=== PATIENT | male | born 1980 | race Caucasian/White ===

== ENCOUNTER → 2018-06-12 | Outpatient (CLI) | payer MEDICARE ==
--- NOTE | 2018-06-12 12:09 | XR ---
EXAMINATION TYPE: XR ankle complete LT DATE OF EXAM: 06/12/2018 COMPARISON: NONE HISTORY: Soft tissue nodule FINDINGS: Three views of the ankle demonstrate the ankle mortise to be intact and symmetric. The joint spaces are preserved. The osseous structures are intact. Bony density along the dorsal surface of the talu s. Appears well corticated and chronic. IMPRESSION: 1. No osseous abnormality. If there is concern for soft tissue nodule correlate with MRI or ultrasoun d.
--- NOTE | 2018-06-12 12:16 | XR ---
EXAMINATION TYPE: XR foot complete LT DATE OF EXAM: 06/12/2018 COMPARISON: NONE HISTORY: Soft tissue nodule TECHNIQUE: Three views are submitted. FINDINGS: The osseous structures are intact. There is no acute fracture or dislocation. Joint spaces are p reserved. Mild arthropathy of the first MTP. IMPRESSION: 1. No acute fracture or dislocation. If symptoms persist, follow-up exam in 7 to 10 days could be ob tained.
== END ==
LOC: RADXRMAIN 11:40
PROVIDERS: ATTEND Podiatrist Foot Surgery
DX: M79.672 Pain in left foot (principal); M67.472 Ganglion, left ankle and foot; M77.42 Metatarsalgia, left foot

== ENCOUNTER → 2018-06-25 | Outpatient (CLI) | payer MEDICARE, OTHER ==
--- NOTE | 2018-06-25 13:35 | US ---
EXAMINATION TYPE: US extremity nonvasc complete LT DATE OF EXAM: 06/25/2018 COMPARISON: Correlation radiograph 06/12/2018 CLINICAL HISTORY: 38-year-old male M67.472/[id number]. Possible ganglion cyst. TECHNIQUE: Targeted ultrasound examination dorsal left ankle for possible ganglion cyst. FINDINGS: There is soft tissue swelling overlying the dorsum of the ankle. There is some focal bony prominence to the dorsal aspect of the talar head with a small 4 mm fragment of bone just adjacent, also apparen t radiographically. The dorsalis pedis artery courses directly above this region. There is heterogeneity of the subcutaneous tissues with some insinuating edema just medially. No disc rete ganglion cyst is seen. IMPRESSION: 1. Some bony protuberance from the dorsal aspect of the talar head. A small 4 mm fragment of bone her e could represent sequela of prior capsular injury and is apparent radiographically as well. 2. Overlying soft tissue swelling and some poorly defined fluid insinuating within the subcutaneous t issues, possible developing adventitial bursa. No well-formed bursa or discrete ganglion cyst. 3. The DP artery also courses along this region.
== END | disposition home or self-care (01) ==
LOC: RADUSWWP 10:16
PROVIDERS: ATTEND Podiatrist Foot Surgery
DX: M79.89 Other specified soft tissue disorders (principal); M79.672 Pain in left foot

== ENCOUNTER 2019-03-27 08:19 | Day surgery (SDC) | payer MEDICARE, OTHER ==
[2019-03-25 16:44] VITALS: BMI 36.3
[~2019-03-27 08:19] MED LIST: LACTATED RINGERS 1,000 ML IV SCH
[2019-03-27] MEDS ORDERED: LIDOCAINE 1% 20 ML VIAL (10MG/ML) FOR IV START INTRADERMA ONE (08:50)
[2019-03-27 08:56] LABS: Glucose,Whole Blood 86 mg/dL (75-99)
[2019-03-27 09:06] VITALS: TEMP 98.2
[2019-03-27] MEDS ORDERED: LIDOCAINE 1% INJ 10MG/ML (20 ML MDV) ONE (09:09)
[2019-03-27] MEDS ORDERED: PROPOFOL 10 MG/ML 20 ML VIAL IV ONE (09:09)
[2019-03-27 10:04] VITALS: RESP 18
--- NOTE | 2019-03-27 10:08 | P.PCN ---
Date of Procedure: 03/27/19 Description of Procedure: Brief history: 39-year-old male presenting for outpatient EGD and colonoscopy for evaluation of altered bowel function, esophageal dysphagia. The patient reports episodes of loose bowel movements with associated incontinence and urgency. Occasionally waking up to have bowel movements. Laboratory evaluation and stool studies were negative except for a mildly depressed TSH with normal T4. He denies any current laxative therapy. Continues to have loose watery bowel movements. He also reports intermittent pill and solid food dysphagia. Procedure performed: Esophagogastroduodenoscopy with biopsy Colonoscopy with biopsy and polypectomy Estimated blood loss: Minimal. Preoperative diagnosis: Esophageal dysphagia, altered bowel function, no prior endoscopic evaluation Anesthesia: MAC Procedure: After informed consent was obtained from the patient was brought into the endoscopy unit and IV sedation was administered by anesthesia under continuous monitoring. Initially upper endoscopy was done. The Olympus GF 190 video endoscope was inserted into the mouth and esophagus intubated without any difficulty and was gradually advanced into the stomach and duodenum and carefully examined. The bulb and second part of the duodenum appeared normal, with biopsies taken to rule out celiac sprue. The scope was then withdrawn into the stomach adequately insufflated with air and upon careful examination the antrum and body, cardia and fundus appeared normal, except for some mild erythema in the antrum and body suggestive of mild gastritis with biopsies taken. The scope was then withdrawn into the esophagus. The GE junction was located at 40 cm to the incisors. It appeared regular with no erythema erosions or ulcerations. Rest of the esophagus appeared normal, with metastatic esophageal biopsies taken to rule out eosinophilic esophagitis. Patient tolerated the procedure well. At this time the patient continued to remain sedation. Initial digital rectal examination was normal. Olympus CF 190 video colonoscope was then inserted into the rectum and gradually advanced to the cecum without any difficulty. The terminal ileum was intubated and appeared normal with biopsies taken due to altered bowel function. Careful examination was performed as the scope was gradually being withdrawn. The prep was excellent. The cecum, ascending colon, transverse colon, descending colon, sigmoid colon and rectum appeared normal, with biopsies of the right and left colon taken due to altered bowel function. 2 diminutive polyps one from the ascending colon and one in the transverse colon removed measuring 2 mm removed with cold forcep polypectomy . Retroflexion was performed in the rectum and no lesions were noted. Patient tolerated the procedure well. Impression: 1. Mild gastritis antrum and body, biopsied. Biopsies of the duodenum and midesophagus. 2. 2 diminutive polyps removed from the ascending colon and transverse colon with cold forceps. Normal-appearing colon from rectum to cecum with normal appearing terminal ileum, random biopsies taken of the right colon, left colon and terminal ileum given ulcer. Recommendations: Findings of this examination were discussed with the patient as well as His parents. Okay to resume diet. Okay to resume medications. Follow-up in gastroenterology clinic as previously scheduled. Anticipate repeat colonoscopy in 5 years for personal history of colon polyps.
[2019-03-27 10:24] VITALS: BP 104/63; PULSE 73
== END 2019-03-27 10:45 | disposition home or self-care (01) ==
LOC: ORWHC2ENDO 08:19
PROVIDERS: ATTEND Internal Medicine
DX: K29.50 Unspecified chronic gastritis without bleeding (principal); K21.0 Gastro-esophageal reflux disease with esophagitis; K63.5 Polyp of colon; I10 Essential (primary) hypertension; Z79.899 Other long term (current) drug therapy; Z88.8 Allergy status to other drugs, medicaments and biological substances
CPT/HCPCS: 88305; 45380; 43239; J2001; J2704

== ENCOUNTER → 2019-06-09 | Outpatient (CLI) | payer MEDICARE, OTHER ==
--- NOTE | 2019-06-09 21:45 | XR ---
EXAMINATION TYPE: XR abdomen 2V DATE OF EXAM: 06/09/2019 COMPARISON: NONE HISTORY: Abdominal pain TECHNIQUE: One view abdominal series FINDINGS: The osseous structures are intact. The bowel gas pattern is nonspecific. Lung bases are clear. Scler osis adjacent to the left SI joint can be associated with sacroiliitis. No suspicious calcifications. IMPRESSION: 1. Nonspecific abdomen.
== END | disposition home or self-care (01) ==
LOC: RAD 16:22
PROVIDERS: ATTEND Internal Medicine
DX: R19.4 Change in bowel habit (principal)
CPT/HCPCS: 74019

== ENCOUNTER → 2020-06-21 | Outpatient (CLI) | payer MEDICARE, OTHER ==
--- NOTE | 2020-06-21 15:33 | CT ---
EXAMINATION TYPE: CT hand RT wo con DATE OF EXAM: 06/21/2020 COMPARISON: None. HISTORY: Right 4th and 5th digit pain x1 month. Fifth metacarpal fracture, evaluate healing per order . CT DLP: 169.7 mGycm Automated exposure control for dose reduction was used. FINDINGS: There is a displaced subacute fracture at base or proximal metaphysis of fifth metacarpal. Some callu s formation is seen. Some additional tiny bony fragments along the ulnar aspect are felt present. The re is roughly 4-5 mm radial displacement of distal fracture fragment on coronal image 36.There is rou ghly 7 mm impaction of distal fracture fragment. There is abnormal measured 30 degrees dorsal angulat ion of distal fracture fragment on sagittal images. There is also abnormal 27 degrees radial angulati on of distal fracture fragment coronal images. Remainder of study is unremarkable. Joint spaces are maintained. No additional fracture is observed. IMPRESSION: As above.
== END ==
LOC: RADCTMAIN 14:51
PROVIDERS: ATTEND Orthopaedic Surgery Hand Surgery
DX: S62.316D Displaced fracture of base of fifth metacarpal bone, right hand, subsequent encounter for fracture with routine healing (principal)

== ENCOUNTER 2021-01-08 00:05 | Emergency (ER) | payer MEDICARE, OTHER ==
[2021-01-08] MEDS ORDERED: SODIUM CHLORIDE 0.9% 1,000 ML IV STA (00:19)
[2021-01-08] MEDS ORDERED: ACETAMINOPHEN TAB 325 MG TAB PO STA (00:19)
[2021-01-08 01:20] LABS: Basophils # (A) 0.1 k/uL (0-0.2); Basophils % (A) 1 %; Eosinophils # (A) 1.7 k/uL (0-0.7); Eosinophils % (A) 14 %; HCT 44.7 % (39.0-53.0); HGB 14.5 gm/dL (13.0-17.5); Lymphocytes # (A) 2.1 k/uL (1.0-4.8); Lymphocytes % (A) 18 %; MCH 27.9 pg (25.0-35.0); MCHC 32.5 g/dL (31.0-37.0); Mean Platelet Volume 7.7; Monocytes # (A) 0.5 k/uL (0-1.0); Monocytes % (A) 4 %; Neutrophils # (A) 7.5 k/uL (1.3-7.7); Neutrophils % (A) 62 %; Platelet Count 310 k/uL (150-450); RDW 13.6 % (11.5-15.5); WBC 12.1 k/uL (3.8-10.6)
[2021-01-08 01:29] LABS: Appearance,Urine Clear (Clear); Bilirubin,Urine Negative (Negative); Blood,Urine Negative (Negative); Color,Urine Yellow; Glucose,Urine (UA) Negative (Negative); Ketones,Urine Negative (Negative); Leukocyte Esterase,Urine Negative (Negative); Nitrite,Urine Negative (Negative); Protein,Urine Trace (Negative); Specific Gravity,Urine 1.022 (1.001-1.035); Urobilinogen,Urine <2.0 mg/dL (<2.0)
[2021-01-08 01:57] LABS: Albumin 4.1 g/dL (3.5-5.0); Calcium 8.6 mg/dL (8.4-10.2); Total Bilirubin 0.5 mg/dL (0.2-1.3); Total Protein 6.8 g/dL (6.3-8.2)
[2021-01-08] MEDS ORDERED: ONDANSETRON ODT 4 MG TAB PO STA (01:59)
--- NOTE | 2021-01-08 01:59 | ED ---
General Adult HPI - General Chief complaint: Headache Stated complaint: Headache Time Seen by Provider: 01/08/21 00:15 Source: patient, RN notes reviewed Mode of arrival: wheelchair - History of Present Illness Initial comments: Patient is a 40-year-old male presents to emergency department complaining of weakness headache for the past day started around [address] [address] similarly the past and was diagnosed with dehydration and IV fluids helped alleviate symptoms. Patient noted that he took his nighttime medications prior to arrival. He was otherwise a well-appearing 40-year-old male in no apparent distress or pain. He denied any chest pain shortness of breath headache nausea vomiting diarrhea constipation fever fatigue chills. - Related Data Home Medications Medication Instructions Recorded Confirmed ARIPiprazole IM SYRINGE [Abilify 400 mg IM Q56D 03/25/19 03/25/19 Maintena Syringe] Amlodipine(Dose Unknown) 10 mg PO QAM 03/25/19 03/27/19 Ativan(Dose Unknown) 1 mg PO BID 03/25/19 03/27/19 Clonidine(Dose Unknown) 0.1 mg PO DAILY PRN 03/25/19 03/27/19 Lisinpril(Dose Unkown) 40 mg PO DAILY 03/25/19 03/27/19 Metoprolol(Dose Unknown) 25 mg PO BID 03/25/19 03/27/19 Omeprazole(Dose Unknown) 20 mg PO QAM 03/25/19 03/27/19 Pepcid(Dose Unknown) 1 tab PO HS 03/25/19 03/25/19 Vistaril(Dose Unknown) 25 mg PO HS 03/25/19 03/27/19 Atorvastatin [Lipitor] 10 mg PO HS 03/27/19 03/27/19 Cholecalciferol (Vitamin D3) 5,000 unit PO 03/27/19 [Vitamin D3] Clobetasol Propionate [Temovate 1 applic TOPICAL HS 03/27/19 03/27/19 0.05% Oint] Divalproex [Depakote] 750 mg PO HS 03/27/19 03/27/19 Fluocinonide 0.05% [Lidex 0.05% TOPICAL BID 03/27/19 cream] lisinopriL 20 mg PO HS 03/27/19 03/27/19 Allergies Allergy/AdvReac Type Severity Reaction Status Date / Time escitalopram [From Lexapro] Allergy erection Verified 01/08/21 00:10 that lasted over 24 hfs Review of Systems ROS Statement: Those systems with pertinent positive or pertinent negative responses have been documented in the HPI. ROS Other: All systems not noted in ROS Statement are negative. Past Medical History Past Medical History: GERD/Reflux, Hypertension, Osteoarthritis (OA), Skin Disorder Additional Past Medical History / Comment(s): blood in stool, psoriasis, dermatitis, "prediabetic"-diet control, anemia, sore left ankle-limps, deh ydration History of Any Multi-Drug Resistant Organisms: MRSA Date of last positivie culture/infection: 11/20/2012 MDRO Source:: back Additional Past Surgical History / Comment(s): Dr Shah did a surgery but not sure what, Past Anesthesia/Blood Transfusion Reactions: Motion Sickness Past Psychological History: Anxiety, Depression Smoking Status: Never smoker Past Alcohol Use History: Rare Past Drug Use History: None Reported - Past Family History Brother(s) Family Medical History: Cancer General Exam General appearance: alert, in no apparent distress, obese Head exam: Present: atraumatic, normocephalic, normal inspection Eye exam: Present: normal appearance, PERRL, EOMI. Absent: scleral icterus, conjunctival injection, periorbital swelling Neck exam: Present: normal inspection Respiratory exam: Present: normal lung sounds bilaterally. Absent: respiratory distress, wheezes, rales, rhonchi, stridor Cardiovascular Exam: Present: regular rate, normal rhythm, normal heart sounds. Absent: systolic murmur, diastolic murmur, rubs, gallop, clicks GI/Abdominal exam: Present: soft, normal bowel sounds. Absent: distended, tenderness, guarding, rebound, rigid Extremities exam: Present: normal inspection, full ROM, normal capillary refill. Absent: tenderness, pedal edema, joint swelling, calf tenderness Neurological exam: Present: alert, oriented X3 Psychiatric exam: Present: normal affect, normal mood Skin exam: Present: warm, dry, intact, normal color. Absent: rash Course Vital Signs 01/08/21 00:06 Temperature 99.8 F H Pulse Rate 85 Respiratory 19 Rate Blood Pressure 151/91 O2 Sat by Pulse 97 Oximetry Medical Decision Making - Medical Decision Making 40-year-old male complaining of headache and only drinking 3-4 glasses of water per day. Basic labs, 1 L normal saline ordered. Labs unremarkable. Patient states since then better after fluids. 4 mg Zofran given for nausea. Patient is agreeable to discharge home as he is feeling better while laying in bed. Case discussed with Dr. Hernandez, patient discharge home. - Lab Data Result diagrams: 01/08/21 01:03 01/08/21 01:03 Lab Results 01/08/21 01/08/21 01/08/21 Range/Units 01:03 01:03 01:03 WBC 12.1 H (3.8-10.6) k/uL RBC 5.20 (4.30-5.90) m/uL Hgb 14.5 (13.0-17.5) gm/dL Hct 44.7 (39.0-53.0) % MCV 86.0 (80.0-100.0) fL MCH 27.9 (25.0-35.0) pg MCHC 32.5 (31.0-37.0) g/dL RDW 13.6 (11.5-15.5) % Plt Count 310 (150-450) k/uL MPV 7.7 Neutrophils % 62 % Lymphocytes % 18 % Monocytes % 4 % Eosinophils % 14 % Basophils % 1 % Neutrophils # 7.5 (1.3-7.7) k/uL Lymphocytes # 2.1 (1.0-4.8) k/uL Monocytes # 0.5 (0-1.0) k/uL Eosinophils # 1.7 H (0-0.7) k/uL Basophils # 0.1 (0-0.2) k/uL Sodium 134 L (137-145) mmol/L Potassium 4.0 (3.5-5.1) mmol/L Chloride 103 (98-107) mmol/L Carbon Dioxide 22 (22-30) mmol/L Anion Gap 9 mmol/L BUN 25 H (9-20) mg/dL Creatinine 1.25 (0.66-1.25) mg/dL Est GFR (CKD-EPI)AfAm 85 (>60 ml/min/1.73 sqM) Est GFR (CKD-EPI)NonAf 73 (>60 ml/min/1.73 sqM) Glucose 135 H (74-99) mg/dL Calcium 8.6 (8.4-10.2) mg/dL Total Bilirubin 0.5 (0.2-1.3) mg/dL AST 29 (17-59) U/L ALT 30 (4-49) U/L Alkaline Phosphatase 99 (38-126) U/L Total Protein 6.8 (6.3-8.2) g/dL Albumin 4.1 (3.5-5.0) g/dL Urine Color Yellow Urine Appearance Clear (Clear) Urine pH 5.0 (5.0-8.0) Ur Specific [place] 1.022 (1.001-1.035) Urine Protein Trace H (Negative) Urine Glucose (UA) Negative (Negative) Urine Ketones Negative (Negative) Urine Blood Negative (Negative) Urine Nitrite Negative (Negative) Urine Bilirubin Negative (Negative) Urine Urobilinogen <2.0 (<2.0) mg/dL Ur Leukocyte Esterase Negative (Negative) Disposition Clinical Impression: Dehydration, Nausea, Headache Disposition: HOME SELF-CARE Condition: Stable Instructions (If sedation given, give patient instructions): Acute Headache (ED) Additional Instructions: Please return to the Emergency Department if symptoms worsen or any other concerns. Increase oral fluids to approximately gallon water per day. Follow up primary care 1-2 days. Take medications as prescribed Is patient prescribed a controlled substance at d/c from ED?: No Referrals: None,Stated [Primary Care Provider] - 1-2 days Time of Disposition: 02:31
[2021-01-08 02:40] VITALS: BP 122/81; PULSE 82; RESP 20; TEMP 98.3
== END 2021-01-08 02:56 | disposition home or self-care (01) ==
LOC: EC 00:05
DX: E86.0 Dehydration (principal); R11.0 Nausea; R51.9 Headache, unspecified; R53.1 Weakness; I10 Essential (primary) hypertension; K21.9 Gastro-esophageal reflux disease without esophagitis; M19.90 Unspecified osteoarthritis, unspecified site; Z88.8 Allergy status to other drugs, medicaments and biological substances; Z79.899 Other long term (current) drug therapy
CPT/HCPCS: 36415; 80053; 81003; 85025; 96360; 99285

== ENCOUNTER 2021-04-28 21:55 | Emergency (ER) | payer MEDICARE, OTHER ==
[2021-04-28] MEDS ORDERED: ACETAMINOPHEN TAB 500 MG TAB PO STA (23:33)
[2021-04-28] MEDS ORDERED: ONDANSETRON 4 MG/2 ML VIAL IVP STA (23:34)
[2021-04-28] MEDS ORDERED: KETOROLAC 15 MG/ML 1 ML VIAL IVP STA (23:36)
[2021-04-28] MEDS ORDERED: DEXAMETHASONE SOD PHOSPHATE 10 MG/ML 1 ML VIAL IVP STA (23:36)
--- NOTE | 2021-04-28 23:36 | ED ---
Fever HPI - General Chief Complaint: Fever Stated Complaint: Cough,Abd pain Time Seen by Provider: 04/28/21 23:15 Source: patient, RN notes reviewed, old records reviewed Mode of arrival: ambulatory Limitations: physical limitation - History of Present Illness Initial Comments: This is a 41-year-old male to the emergency department for evaluation of fever nausea vomiting diarrhea cough congestion. No travel history no sick contacts. No other significantly new complaints. Patient states otherwise not really feeling well. Increasing weakness and abdominal pain. Symptoms have been 2 days getting worse MD Complaint: fever, malaise, weakness, other (NVD) -: days(s) Temperature Source: subjective Context: multiple patients with similar symptoms Associated Symptoms: chills, rigors, myalgias, cough, nausea, vomiting, diarrhea Treatments Prior to Arrival: none - Related Data Home Medications Medication Instructions Recorded Confirmed ARIPiprazole IM SYRINGE [Abilify 400 mg IM Q56D 03/25/19 03/25/19 Maintena Syringe] Amlodipine(Dose Unknown) 10 mg PO QAM 03/25/19 03/27/19 Ativan(Dose Unknown) 1 mg PO BID 03/25/19 03/27/19 Clonidine(Dose Unknown) 0.1 mg PO DAILY PRN 03/25/19 03/27/19 Lisinpril(Dose Unkown) 40 mg PO DAILY 03/25/19 03/27/19 Metoprolol(Dose Unknown) 25 mg PO BID 03/25/19 03/27/19 Omeprazole(Dose Unknown) 20 mg PO QAM 03/25/19 03/27/19 Pepcid(Dose Unknown) 1 tab PO HS 03/25/19 03/25/19 Vistaril(Dose Unknown) 25 mg PO HS 03/25/19 03/27/19 Atorvastatin [Lipitor] 10 mg PO HS 03/27/19 03/27/19 Cholecalciferol (Vitamin D3) 5,000 unit PO 03/27/19 [Vitamin D3] Clobetasol Propionate [Temovate 1 applic TOPICAL HS 03/27/19 03/27/19 0.05% Oint] Divalproex [Depakote] 750 mg PO HS 03/27/19 03/27/19 Fluocinonide 0.05% [Lidex 0.05% TOPICAL BID 03/27/19 cream] lisinopriL 20 mg PO HS 03/27/19 03/27/19 Allergies Allergy/AdvReac Type Severity Reaction Status Date / Time escitalopram [From Lexapro] Allergy erection Verified 04/28/21 23:10 that lasted over 24 hfs Review of Systems ROS Statement: Those systems with pertinent positive or pertinent negative responses have been documented in the HPI. ROS Other: All systems not noted in ROS Statement are negative. Past Medical History Past Medical History: GERD/Reflux, Hypertension, Osteoarthritis (OA), Skin Disorder Additional Past Medical History / Comment(s): blood in stool, psoriasis, dermatitis, "prediabetic"-diet control, anemia, sore left ankle-limps, de hydration History of Any Multi-Drug Resistant Organisms: MRSA Date of last positivie culture/infection: 11/20/2012 MDRO Source:: back Additional Past Surgical History / Comment(s): Dr Shah did a surgery but not sure what, Past Anesthesia/Blood Transfusion Reactions: Motion Sickness Past Psychological History: Anxiety, Depression Smoking Status: Never smoker Past Alcohol Use History: Rare Past Drug Use History: None Reported - Past Family History Brother(s) Family Medical History: Cancer General Exam Limitations: physical limitation General appearance: alert, in no apparent distress Head exam: Present: atraumatic, normocephalic, normal inspection Eye exam: Present: normal appearance, PERRL, EOMI. Absent: scleral icterus, conjunctival injection, periorbital swelling ENT exam: Present: normal exam, mucous membranes moist Neck exam: Present: normal inspection. Absent: tenderness, meningismus, lymphadenopathy Respiratory exam: Present: normal lung sounds bilaterally. Absent: respiratory distress, wheezes, rales, rhonchi, stridor Cardiovascular Exam: Present: regular rate, normal rhythm, normal heart sounds. Absent: systolic murmur, diastolic murmur, rubs, gallop, clicks GI/Abdominal exam: Present: soft, normal bowel sounds. Absent: distended, tenderness, guarding, rebound, rigid Extremities exam: Present: normal inspection, full ROM, normal capillary refill. Absent: tenderness, pedal edema, joint swelling, calf tenderness Back exam: Present: normal inspection Neurological exam: Present: alert, oriented X3, CN II-XII intact Psychiatric exam: Present: normal affect, normal mood Skin exam: Present: warm, dry, intact, normal color. Absent: rash Course Vital Signs 04/28/21 23:00 Temperature 100.6 F H Pulse Rate 104 H Respiratory 18 Rate Blood Pressure 142/83 O2 Sat by Pulse 95 Oximetry - Reevaluation(s) Reevaluation #1: 04/29/21 01:24 Record is reviewed Reevaluation #2: 04/29/21 01:24 A she has requesting to have antibodies as a treatment Reevaluation #3: 04/29/21 01:24 Patient is informed results and questions answered Reevaluation #4: 04/29/21 01:24 Patient feels improved no reaction to treatment Medical Decision Making - Medical Decision Making 41 male positive for coronavirus. Symptoms improve significantly here in the ER and can be discharged home - Lab Data Result diagrams: 04/28/21 23:39 04/28/21 23:39 Lab Results 04/28/21 04/28/21 04/28/21 Range/Units 23:14 23:39 23:39 WBC 4.8 (3.8-10.6) k/uL RBC 5.54 (4.30-5.90) m/uL Hgb 15.2 (13.0-17.5) gm/dL Hct 47.7 (39.0-53.0) % MCV 86.1 (80.0-100.0) fL MCH 27.4 (25.0-35.0) pg MCHC 31.8 (31.0-37.0) g/dL RDW 13.4 (11.5-15.5) % Plt Count 214 (150-450) k/uL MPV 7.6 Neutrophils % 64 % Lymphocytes % 22 % Monocytes % 8 % Eosinophils % 4 % Basophils % 1 % Neutrophils # 3.1 (1.3-7.7) k/uL Lymphocytes # 1.0 (1.0-4.8) k/uL Monocytes # 0.4 (0-1.0) k/uL Eosinophils # 0.2 (0-0.7) k/uL Basophils # 0.0 (0-0.2) k/uL Sodium 138 (137-145) mmol/L Potassium 4.1 (3.5-5.1) mmol/L Chloride 104 (98-107) mmol/L Carbon Dioxide 24 (22-30) mmol/L Anion Gap 10 mmol/L BUN 19 (9-20) mg/dL Creatinine 1.14 (0.66-1.25) mg/dL Est GFR (CKD-EPI)AfAm >90 (>60 ml/min/1.73 sqM) Est GFR (CKD-EPI)NonAf 81 (>60 ml/min/1.73 sqM) Glucose 107 H (74-99) mg/dL Calcium 8.5 (8.4-10.2) mg/dL Magnesium 1.8 (1.6-2.3) mg/dL Total Bilirubin 0.4 (0.2-1.3) mg/dL AST 39 (17-59) U/L ALT 45 (4-49) U/L Alkaline Phosphatase 79 (38-126) U/L Lactate Dehydrogenase 448 (313-618) U/L C-Reactive Protein 0.8 (<1.0) mg/dL Total Protein 7.0 (6.3-8.2) g/dL Albumin 4.3 (3.5-5.0) g/dL Coronavirus (PCR) Detected A (Not Detectd) - EKG Data -: EKG Interpreted by Me (EKG sinus rhythm 94 IL 132 QRS 90 QTC 437) - Radiology Data Radiology results: report reviewed (Chest x-rays negative for acute disease), image reviewed Disposition Clinical Impression: Coronavirus infection, COVID-19 Disposition: HOME SELF-CARE Condition: Good Instructions (If sedation given, give patient instructions): Coronavirus Disease 2019 (COVID-19) Is patient prescribed a controlled substance at d/c from ED?: No Referrals: None,Stated [Primary Care Provider] - 1-2 days
[2021-04-29 00:22] LABS: Basophils % (A) 1 %; Eosinophils # (A) 0.2 k/uL (0-0.7); Eosinophils % (A) 4 %; HCT 47.7 % (39.0-53.0); HGB 15.2 gm/dL (13.0-17.5); Lymphocytes % (A) 22 %; MCH 27.4 pg (25.0-35.0); MCHC 31.8 g/dL (31.0-37.0); MCV 86.1 fL (80.0-100.0); Mean Platelet Volume 7.6; Monocytes # (A) 0.4 k/uL (0-1.0); Monocytes % (A) 8 %; Neutrophils # (A) 3.1 k/uL (1.3-7.7); Neutrophils % (A) 64 %; Platelet Count 214 k/uL (150-450); RBC 5.54 m/uL (4.30-5.90); RDW 13.4 % (11.5-15.5); WBC 4.8 k/uL (3.8-10.6)
--- NOTE | 2021-04-29 00:29 | XR ---
EXAMINATION TYPE: XR chest 1V portable DATE OF EXAM: 04/29/2021 COMPARISON: NONE HISTORY: Cough TECHNIQUE: FINDINGS: Heart is normal. Lungs are clear of infiltrate. There is no heart failure. Costophrenic ang les are clear. Bony thorax is intact IMPRESSION: Normal chest.
[2021-04-29 00:38] LABS: ALT 45 U/L (4-49); AST 39 U/L (17-59); African American GFR (CKD) >90 (>60 ml/min/1.73 sqM); Albumin 4.3 g/dL (3.5-5.0); Alkaline Phosphatase 79 U/L (38-126); Anion Gap 10 mmol/L; Blood Urea Nitrogen 19 mg/dL (9-20); C Reactive Protein 0.8 mg/dL (<1.0); Calcium 8.5 mg/dL (8.4-10.2); Carbon Dioxide 24 mmol/L (22-30); Chloride 104 mmol/L (98-107); Glucose 107 mg/dL (74-99); LDH 448 U/L (313-618); Magnesium 1.8 mg/dL (1.6-2.3); Non-African American GFR(CKD) 81 (>60 ml/min/1.73 sqM); Potassium 4.1 mmol/L (3.5-5.1); Sodium 138 mmol/L (137-145); Total Bilirubin 0.4 mg/dL (0.2-1.3)
[2021-04-29] MEDS ORDERED: SODIUM CHLORIDE 0.9% 50 ML IVPB ONE (02:30)
[2021-04-29] MEDS ORDERED: CASIRIVIMAB (REGN10933) (EUA) 600 MG, IMDEVIMAB (REGN10987) (EUA) 600 MG in SODIUM CHLO... IVPB ONE (02:30)
[2021-04-29 03:40] VITALS: BP 136/81; PULSE 89; RESP 16; TEMP 98.1
== END 2021-04-29 04:42 | disposition home or self-care (01) ==
LOC: EC 21:55
DX: U07.1 COVID-19 (principal); I10 Essential (primary) hypertension; K21.9 Gastro-esophageal reflux disease without esophagitis; E11.9 Type 2 diabetes mellitus without complications; Z79.899 Other long term (current) drug therapy; Z79.811 Long term (current) use of aromatase inhibitors; Z79.52 Long term (current) use of systemic steroids; Z79.83 Long term (current) use of bisphosphonates; Z79.02 Long term (current) use of antithrombotics/antiplatelets; Z88.8 Allergy status to other drugs, medicaments and biological substances
CPT/HCPCS: 99284; 96374; 96375; 96361; 36415; 93005; 80053; 83615; 83735; 85025; 86140; 84145; 87635; 71045; J1100; J2405; J1885; Q0244

== ENCOUNTER 2021-05-03 17:55 | Emergency (ER) | payer MEDICARE, OTHER ==
[2021-05-03 20:19] VITALS: PULSE 100
[2021-05-04] MEDS ORDERED: ACETAMINOPHEN TAB 500 MG TAB PO STA (00:22)
--- NOTE | 2021-05-04 00:26 | ED ---
URI HPI - General Chief Complaint: Upper Respiratory Infection Stated Complaint: Day 5 Covid + chills Time Seen by Provider: 05/04/21 00:17 Source: patient, RN notes reviewed Mode of arrival: ambulatory Limitations: no limitations - History of Present Illness Initial Comments: This is a pleasant 41-year-old male with history of prediabetes. Patient presents to the emergency department today complaining of chills, fever, body aches, dry cough, loss of taste and smell, and mild headache since earlier today. Patient had 2 positive test today for COVID-19. Patient has not taken any antipyretics since earlier this morning. He denies any overt shortness of breath. Does have mild diarrhea. no changes in vision or hearing, no sore throat or difficulty with speech, no neck pain, no chest pain or shortness of breath, no abdominal pain, no nausea or vomiting, no changes in urination or bowel movements, no numbness or tingling, no extremity pain, no skin rashes or lesions. MD Complaint: fever, cough, sore throat, rhinorrhea - Related Data Home Medications Medication Instructions Recorded Confirmed ARIPiprazole IM SYRINGE [Abilify 400 mg IM Q56D 03/25/19 03/25/19 Maintena Syringe] Amlodipine(Dose Unknown) 10 mg PO QAM 03/25/19 03/27/19 Ativan(Dose Unknown) 1 mg PO BID 03/25/19 03/27/19 Clonidine(Dose Unknown) 0.1 mg PO DAILY PRN 03/25/19 03/27/19 Lisinpril(Dose Unkown) 40 mg PO DAILY 03/25/19 03/27/19 Metoprolol(Dose Unknown) 25 mg PO BID 03/25/19 03/27/19 Omeprazole(Dose Unknown) 20 mg PO QAM 03/25/19 03/27/19 Pepcid(Dose Unknown) 1 tab PO HS 03/25/19 03/25/19 Vistaril(Dose Unknown) 25 mg PO HS 03/25/19 03/27/19 Atorvastatin [Lipitor] 10 mg PO HS 03/27/19 03/27/19 Cholecalciferol (Vitamin D3) 5,000 unit PO 03/27/19 [Vitamin D3] Clobetasol Propionate [Temovate 1 applic TOPICAL HS 03/27/19 03/27/19 0.05% Oint] Divalproex [Depakote] 750 mg PO HS 03/27/19 03/27/19 Fluocinonide 0.05% [Lidex 0.05% TOPICAL BID 03/27/19 cream] lisinopriL 20 mg PO HS 03/27/19 03/27/19 Previous Rx's Medication Instructions Recorded Acetaminophen [Tylenol] 500 mg PO Q4-6H PRN #20 tab 04/30/21 Ibuprofen [Motrin] 600 mg PO Q6HR PRN #20 tab 04/30/21 Ondansetron [Zofran ODT] 4 mg PO Q8HR PRN #15 tab 04/30/21 guaiFENesin [Mucinex] 600 mg PO Q12HR PRN #20 tab 04/30/21 Allergies Allergy/AdvReac Type Severity Reaction Status Date / Time escitalopram [From Lexapro] Allergy erection Verified 05/03/21 20:19 that lasted over 24 hfs Review of Systems ROS Statement: Those systems with pertinent positive or pertinent negative responses have been documented in the HPI. ROS Other: All systems not noted in ROS Statement are negative. Past Medical History Past Medical History: GERD/Reflux, Hypertension, Osteoarthritis (OA), Skin Disorder Additional Past Medical History / Comment(s): blood in stool, psoriasis, dermatitis, "prediabetic"-diet control, anemia, sore left ankle-limps, dehydration History of Any Multi-Drug Resistant Organisms: MRSA Date of last positivie culture/infection: 11/20/2012 MDRO Source:: back Additional Past Surgical History / Comment(s): Dr Shah did a surgery but not sure what, Past Anesthesia/Blood Transfusion Reactions: Motion Sickness Past Psychological History: Anxiety, Depression Smoking Status: Never smoker Past Alcohol Use History: Rare Past Drug Use History: None Reported - Past Family History Brother(s) Family Medical History: Cancer General Exam - General Exam Comments Initial Comments: Vital signs noted, patient appears mildly ill but not toxic. Capillary refill is less than 2 seconds. No mottling. No evidence of respiratory distress. Cranial nerves II through XII grossly intact Limitations: no limitations General appearance: alert, in no apparent distress Head exam: Present: atraumatic, normocephalic, normal inspection Eye exam: Present: normal appearance, PERRL, EOMI. Absent: scleral icterus, conjunctival injection, periorbital swelling ENT exam: Present: normal exam, mucous membranes moist Neck exam: Present: normal inspection. Absent: tenderness, meningismus, lymphadenopathy Respiratory exam: Present: normal lung sounds bilaterally. Absent: respiratory distress, wheezes, rales, rhonchi, stridor Cardiovascular Exam: Present: regular rate, normal rhythm, normal heart sounds. Absent: systolic murmur, diastolic murmur, rubs, gallop, clicks GI/Abdominal exam: Present: soft, normal bowel sounds. Absent: distended, tenderness, guarding, rebound, rigid Extremities exam: Present: normal inspection, full ROM, normal capillary refill. Absent: tenderness, pedal edema, joint swelling, calf tenderness Back exam: Present: normal inspection Neurological exam: Present: alert, oriented X3, CN II-XII intact Psychiatric exam: Present: normal affect, normal mood Skin exam: Present: warm, dry, intact, normal color. Absent: rash Course Vital Signs 05/03/21 20:17 Temperature 101.5 F H Pulse Rate 100 Respiratory 20 Rate Blood Pressure 138/85 O2 Sat by Pulse 95 Oximetry Medical Decision Making - Medical Decision Making Patient presenting during a COVID-19 pandemic.Patient appears to be ill but not toxic. No evidence of respiratory distress. Does not meet criteria for monoclonal antibody. We'll treat conservatively with antipyretics. Chest x-ray read was ordered. Plan for reevaluation and likely discharge. Patient was told to return to the ER for any signs or symptoms worsen. Told to return immediately if any other problems arise. All questions answered. Treatment plan discussed. Patient in agreement Patient counseled extensively on quarantine measures and treatment plan for COVID-19. All questions answered. Disposition Clinical Impression: COVID-19 Disposition: HOME SELF-CARE Instructions (If sedation given, give patient instructions): Coronavirus Disease 2019 (COVID-19) Additional Instructions: SELF QUARANTINE DISCHARGE: As you are at risk for symptoms due to coronavirus, please stay home and stay away from others as much as possible. Please maintain social distance of 6 feet if possible. You should not return to work until at least 3 days (72 hours) have passed since recovery of symptoms. This defined as resolution of fever without the use of fever reducing medicines and improvement in respiratory symptoms (e.g,, cou gh, shortness of breath) and, At least 5 days have passed since symptoms first appeared. More information about what to do if you are sick can be found on the CDC website at https://www.cdc.gov/cor on-ncov/ey-nre-rlq-sick/dskmm-qnua-zztl.html Expect the symptoms to last for 7-14 days from onset. Use acetaminophen (Tylenol) as needed for discomfort. You can take a maximum of 1 gram every 6 hours for discomfort, with your total dose in 24 hours not exceeding 4 grams. Be sure to maintain hydration. Drink continuous water and/or items high in vitamin C, such as orange juice and/or lemonade. Unless you have high blood pressure, you may consider Sudafed (which is [id number]) for nasal congestion. I would suggest that a short acting Sudafed rather than the 24 hour Sudafed. For a cough you may take Mucinex or Robitussin. Also consider the use of Vicks Vapor Rub or your chest when you sleep. Use a humidifier that is cleaned frequently, in the bedroom at night. For Nausea /Vomiting/Diarrhea associated with your Illness: o Small frequent sips of room temperature liquids. o Diet: [employer] - If you are still experiencing discomfort and/or nausea please slowly advancing your diet using the BRAT Diet = bananas, rice, apples/apple sauce, toast. o With diarrhea avoid any dairy for 48 hours after symptoms resolved. o Continue with activity as tolerated. If your symptoms do get worse and you believe that the upper respiratory infection has developed into something else, such as pneumonia or severe dehydration, please return to the emergency department or follow-up with your primary care. But expect to be symptomatic for the days as indicated above Continue to take the acetaminophen every 4-6 hours for fever control. Is patient prescribed a controlled substance at d/c from ED?: No Referrals: Jesus Hagen [STAFF PHYSICIAN] - 05/11/21 Time of Disposition: 00:54
--- NOTE | 2021-05-04 00:44 | XR ---
EXAMINATION TYPE: XR chest 1V DATE OF EXAM: 05/04/2021 COMPARISON: 04/29/2021 HISTORY: Cough TECHNIQUE: FINDINGS: Heart and mediastinum are normal. Lungs are clear consolidation. Diaphragm is normal. Bony thorax appears normal. There is slight increased density over the left lateral lung field. IMPRESSION: Possible new mild interstitial infiltrate left lateral lung field compared to recent exam .
[2021-05-04 02:37] VITALS: RESP 16
[2021-05-04 02:38] VITALS: BP 114/77; TEMP 97.3
== END 2021-05-04 02:47 | disposition home or self-care (01) ==
LOC: EC 17:55
DX: U07.1 COVID-19 (principal); I10 Essential (primary) hypertension; K21.9 Gastro-esophageal reflux disease without esophagitis; M19.90 Unspecified osteoarthritis, unspecified site; Z88.8 Allergy status to other drugs, medicaments and biological substances; Z79.899 Other long term (current) drug therapy
CPT/HCPCS: 71045; 99284

== ENCOUNTER 2022-01-30 11:52 | Emergency (ER) | payer MEDICARE, OTHER ==
[2022-01-30 12:04] VITALS: TEMP 98.1
[2022-01-30] MEDS ORDERED: KETOROLAC 15 MG/ML 1 ML VIAL IVP STA (15:21)
[2022-01-30] MEDS ORDERED: ONDANSETRON 4 MG/2 ML VIAL IVP STA (15:22)
[2022-01-30] MEDS ORDERED: SODIUM CHLORIDE 0.9% 1,000 ML IV STA (15:22)
[2022-01-30 15:31] LABS: Basophils # (A) 0.1 k/uL (0-0.2); Basophils % (A) 1 %; Eosinophils # (A) 0.9 k/uL (0-0.7); Eosinophils % (A) 7 %; HCT 49.2 % (39.0-53.0); HGB 16.2 gm/dL (13.0-17.5); Lymphocytes # (A) 1.8 k/uL (1.0-4.8); Lymphocytes % (A) 14 %; MCH 27.8 pg (25.0-35.0); MCV 84.3 fL (80.0-100.0); Monocytes # (A) 0.7 k/uL (0-1.0); Monocytes % (A) 5 %; Neutrophils # (A) 9.2 k/uL (1.3-7.7); Neutrophils % (A) 72 %; Platelet Count 297 k/uL (150-450); RBC 5.83 m/uL (4.30-5.90); WBC 12.7 k/uL (3.8-10.6)
[2022-01-30 15:33] LABS: Appearance,Urine Clear (Clear); Bilirubin,Urine Negative (Negative); Blood,Urine Negative (Negative); Color,Urine Yellow; Glucose,Urine (UA) Negative (Negative); Ketones,Urine Negative (Negative); Leukocyte Esterase,Urine Negative (Negative); Nitrite,Urine Negative (Negative); Protein,Urine Trace (Negative); Urobilinogen,Urine <2.0 mg/dL (<2.0)
[2022-01-30 15:40] LABS: ALT 42 U/L (4-49); AST 30 U/L (17-59); African American GFR (CKD) >90 (>60 ml/min/1.73 sqM); Albumin 4.7 g/dL (3.5-5.0); Alkaline Phosphatase 93 U/L (38-126); Anion Gap 12 mmol/L; Blood Urea Nitrogen 12 mg/dL (9-20); Calcium 9.4 mg/dL (8.4-10.2); Carbon Dioxide 26 mmol/L (22-30); Chloride 102 mmol/L (98-107); Glucose 108 mg/dL (74-99); Lipase 70 U/L (23-300); Non-African American GFR(CKD) 85 (>60 ml/min/1.73 sqM); Potassium 4.2 mmol/L (3.5-5.1); Sodium 140 mmol/L (137-145); Total Bilirubin 0.6 mg/dL (0.2-1.3); Total Protein 7.3 g/dL (6.3-8.2)
[2022-01-30 15:45] VITALS: RESP 16
--- NOTE | 2022-01-30 15:53 | ED ---
Abdominal Pain HPI - General Chief Complaint: Abdominal Pain Stated Complaint: blood in urine Time Seen by Provider: 01/30/22 15:02 Source: patient Mode of arrival: ambulatory Limitations: no limitations - History of Present Illness Initial Comments: Patient is a 41-year-old male with a past medical history of hypertension, GERD, and psoriasis who presents to the emergency department with a chief complaint of blood in urine. Patient states he is being evaluated at [facility] for priapism. States this past Sunday he was diagnosed with blood in urine. Patient states he was told to come to the emergency department for repeat urinalysis. He has not noticed any blood in his urine this week. Patient reports intermittent, sharp, abdominal pain in the lower middle abdomen. There is no radiation. Patient reports nausea and vomiting consistently when he eats for the past month, nonbloody. He denies fever, chills, diarrhea, blood in stool, trouble urinating, burning with urination, penile discharge. - Related Data Home Medications Medication Instructions Recorded Confirmed ARIPiprazole IM SYRINGE [Abilify 400 mg IM Q56D 03/25/19 03/25/19 Maintena Syringe] Amlodipine(Dose Unknown) 10 mg PO QAM 03/25/19 03/27/19 Ativan(Dose Unknown) 1 mg PO BID 03/25/19 03/27/19 Clonidine(Dose Unknown) 0.1 mg PO DAILY PRN 03/25/19 03/27/19 Lisinpril(Dose Unkown) 40 mg PO DAILY 03/25/19 03/27/19 Metoprolol(Dose Unknown) 25 mg PO BID 03/25/19 03/27/19 Omeprazole(Dose Unknown) 20 mg PO QAM 03/25/19 03/27/19 Pepcid(Dose Unknown) 1 tab PO HS 03/25/19 03/25/19 Vistaril(Dose Unknown) 25 mg PO HS 03/25/19 03/27/19 Atorvastatin [Lipitor] 10 mg PO HS 03/27/19 03/27/19 Cholecalciferol (Vitamin D3) 5,000 unit PO 03/27/19 [Vitamin D3] Clobetasol Propionate [Temovate 1 applic TOPICAL HS 03/27/19 03/27/19 0.05% Oint] Divalproex [Depakote] 750 mg PO HS 03/27/19 03/27/19 Fluocinonide 0.05% [Lidex 0.05% TOPICAL BID 03/27/19 cream] lisinopriL 20 mg PO HS 03/27/19 03/27/19 Previous Rx's Medication Instructions Recorded Acetaminophen [Tylenol] 500 mg PO Q4-6H PRN #20 tab 04/30/21 Ibuprofen [Motrin] 600 mg PO Q6HR PRN #20 tab 04/30/21 Ondansetron [Zofran ODT] 4 mg PO Q8HR PRN #15 tab 04/30/21 guaiFENesin [Mucinex] 600 mg PO Q12HR PRN #20 tab 04/30/21 Ondansetron Odt [Zofran Odt] 4 mg PO Q8HR PRN #10 tab 01/30/22 Allergies Allergy/AdvReac Type Severity Reaction Status Date / Time escitalopram [From Lexapro] Allergy erection Verified 05/03/21 20:19 that lasted over 24 hfs Review of Systems ROS Statement: Those systems with pertinent positive or pertinent negative responses have been documented in the HPI. ROS Other: All systems not noted in ROS Statement are negative. Past Medical History Past Medical History: GERD/Reflux, Hypertension, Osteoarthritis (OA), Skin Disorder Additional Past Medical History / Comment(s): blood in stool, psoriasis, dermatitis, "prediabetic"-diet control, anemia, sore left ankle-limps, dehydration History of Any Multi-Drug Resistant Organisms: MRSA Date of last positivie culture/infection: 11/20/2012 MDRO Source:: back Additional Past Surgical History / Comment(s): Dr Shah did a surgery but not sure what, Past Anesthesia/Blood Transfusion Reactions: Motion Sickness Past Psychological History: Anxiety, Depression Smoking Status: Never smoker Past Alcohol Use History: Rare Past Drug Use History: None Reported - Past Family History Brother(s) Family Medical History: Cancer General Exam Limitations: no limitations General appearance: alert, in no apparent distress Head exam: Present: atraumatic, normocephalic, normal inspection Respiratory exam: Present: normal lung sounds bilaterally. Absent: respiratory distress, wheezes, rales, rhonchi, stridor Cardiovascular Exam: Present: regular rate, normal rhythm, normal heart sounds. Absent: systolic murmur, diastolic murmur, rubs, gallop, clicks GI/Abdominal exam: Present: soft, tenderness (suprapubic ), normal bowel sounds. Absent: distended, guarding, rebound, rigid Neurological exam: Present: alert, oriented X3, CN II-XII intact Psychiatric exam: Present: normal affect, normal mood Skin exam: Present: warm, dry, intact, normal color. Absent: rash Course Vital Signs 01/30/22 01/30/22 01/30/22 12:02 15:42 17:25 Temperature 98.1 F Pulse Rate 109 H 86 68 Respiratory 20 16 16 Rate Blood Pressure 164/119 160/68 145/86 O2 Sat by Pulse 99 98 98 Oximetry Medical Decision Making - Medical Decision Making This is a 41-year-old male presenting with multiple complaints. Patient well- appearing. Afebrile. Laboratory studies obtained. There is mild leukocytosis at 12.7. Urinalysis does not reveal bacteria or blood. Other laboratory studies are relatively unremarkable. CT of the abdomen and pelvis was obtained which is negative for acute process. At this time there are no diagnostic studies to explain patient's symptoms. He will be sent home with [facility]. He is instructed to take Tylenol or Motrin for pain and follow-up with his primary care provider. Dr. Babcock is my attending. - Lab Data Result diagrams: 01/30/22 15:06 01/30/22 15:06 Lab Results 01/30/22 01/30/22 01/30/22 Range/Units 15:06 15:06 15:27 WBC 12.7 H (3.8-10.6) k/uL RBC 5.83 (4.30-5.90) m/uL Hgb 16.2 (13.0-17.5) gm/dL Hct 49.2 (39.0-53.0) % MCV 84.3 (80.0-100.0) fL MCH 27.8 (25.0-35.0) pg MCHC 33.0 (31.0-37.0) g/dL RDW 13.0 (11.5-15.5) % Plt Count 297 (150-450) k/uL MPV 8.0 Neutrophils % 72 % Lymphocytes % 14 % Monocytes % 5 % Eosinophils % 7 % Basophils % 1 % Neutrophils # 9.2 H (1.3-7.7) k/uL Lymphocytes # 1.8 (1.0-4.8) k/uL Monocytes # 0.7 (0-1.0) k/uL Eosinophils # 0.9 H (0-0.7) k/uL Basophils # 0.1 (0-0.2) k/uL Sodium 140 (137-145) mmol/L Potassium 4.2 (3.5-5.1) mmol/L Chloride 102 (98-107) mmol/L Carbon Dioxide 26 (22-30) mmol/L Anion Gap 12 mmol/L BUN 12 (9-20) mg/dL Creatinine 1.09 (0.66-1.25) mg/dL Est GFR (CKD-EPI)AfAm >90 (>60 ml/min/1.73 sqM) Est GFR (CKD-EPI)NonAf 85 (>60 ml/min/1.73 sqM) Glucose 108 H (74-99) mg/dL Calcium 9.4 (8.4-10.2) mg/dL Total Bilirubin 0.6 (0.2-1.3) mg/dL AST 30 (17-59) U/L ALT 42 (4-49) U/L Alkaline Phosphatase 93 (38-126) U/L Total Protein 7.3 (6.3-8.2) g/dL Albumin 4.7 (3.5-5.0) g/dL Lipase 70 (23-300) U/L Urine Color Yellow Urine Appearance Clear (Clear) Urine pH 5.0 (5.0-8.0) Ur Specific [place] 1.020 (1.001-1.035) Urine Protein Trace H (Negative) Urine Glucose (UA) Negative (Negative) Urine Ketones Negative (Negative) Urine Blood Negative (Negative) Urine Nitrite Negative (Negative) Urine Bilirubin Negative (Negative) Urine Urobilinogen <2.0 (<2.0) mg/dL Ur Leukocyte Esterase Negative (Negative) Disposition Clinical Impression: Blood in urine, Abdominal pain, Nausea and vomiting Disposition: HOME SELF-CARE Condition: Good Instructions (If sedation given, give patient instructions): Acute Nausea and Vomiting (ED), Abdominal Pain (ED) Additional Instructions: Tylenol or Motrin for pain. Take Zofran prescribed to as directed. Follow-up with primary care provider in one to 2 days. Return to emergency department experience new, concerning, or worsening symptoms. Prescriptions: Ondansetron Odt [Zofran Odt] 4 mg PO Q8HR PRN #10 tab PRN Reason: Nausea Is patient prescribed a controlled substance at d/c from ED?: No Referrals: [facility] Marleny ruffin [Primary Care Provider] - 1-2 days
--- NOTE | 2022-01-30 16:32 | CT ---
EXAMINATION TYPE: CT abdomen pelvis wo con DATE OF EXAM: 01/30/2022 COMPARISON: None INDICATION: periumbilical pain DLP: 1097.4 mGycm, Automated exposure control for dose reduction was used. CONTRAST: 0 mL of Isovue 300. Study performed without Oral Contrast TECHNIQUE: Axial images were obtained from above the diaphragm to the pubic rami in the axial plane a t 5 mm thick sections. Reconstructed images are reviewed on the computer in the coronal plane. FINDINGS: Limited CT sections are obtained the lung bases. The lung bases are clear. CT ABDOMEN: Liver: Normal Spleen: Normal. Splenule is adjacent. Pancreas: Normal Adrenal glands: The adrenal glands are normal. Gallbladder: Normal Kidneys: No masses are evident. No hydronephrosis is present. No cysts are present. Delayed images were obtained through the kidneys, which remain unremarkable. Aorta: Vascular calcification is within the aorta. Inferior vena cava: Normal. CT PELVIS: Loops of bowel within the abdomen and pelvis are normal. There appears to be a free-floating cecum wh ich is within the left midabdomen. Study is lateral contrast limiting bowel evaluation. Appendix: Normal as visualized. Urinary bladder: Normal. Genitourinary structures: Prostate appears normal. Osseous structures: No suspicious lytic or sclerotic lesions. IMPRESSIONS: 1. No suspicious acute abnormality to account for periumbilical pain. Very tiny mesenteric fat-conta ining hernia is present at the umbilicus.
[2022-01-30 17:26] VITALS: BP 145/86; PULSE 68
== END 2022-01-30 17:26 | disposition home or self-care (01) ==
LOC: EC 11:52
DX: R31.9 Hematuria, unspecified (principal); R10.9 Unspecified abdominal pain; K21.9 Gastro-esophageal reflux disease without esophagitis; I10 Essential (primary) hypertension; M19.90 Unspecified osteoarthritis, unspecified site; F41.9 Anxiety disorder, unspecified; F32.A Depression, unspecified; Z88.1 Allergy status to other antibiotic agents; Z79.899 Other long term (current) drug therapy
CPT/HCPCS: 36415; 80053; 83690; 85025; 81003; 74176; 99284; 96374; 96375; 96361 ×2; J2405; J1885

== ENCOUNTER → 2022-04-26 | Outpatient (CLI) | payer MEDICARE, OTHER ==
--- NOTE | 2022-04-26 12:31 | US ---
EXAMINATION TYPE: US thyroid st tissue head/neck DATE OF EXAM: 04/26/2022 COMPARISON: NONE CLINICAL HISTORY: R11.0 NAUSEA,R13.13 PHARYNGEAL DYSPHAGIA. Nausea, difficulty swallowing. GLAND SIZE: Right Lobe: 7.0 x 2.8 x 2.1 cm Overall Parenchyma: heterogenous Left Lobe: 6.7 x 2.6 x 2.1 cm Overall Parenchyma: heterogeneous Isthmus Thickness: 0.34 cm NODULES RIGHT: # of nodules measured on right: 2 1. 0.5 X 0.5 x 0.4 cm, lower lateral, mixed cystic and solid, anechoic nodule, which is wider than tall, with smooth margins, with echogenic foci. Prior size: No prior 2. 0.8 X 0.9 x 0.8 cm, lower lateral, mixed cystic and solid, hypoechoic nodule, which is wider tessy n tall, with smooth margins, with echogenic foci. Prior size: No prior LEFT: # of nodules measured on left: 1 1. 0.7 X 0.6 x 0.5 cm, mid mid, mixed cystic and solid, hypoechoic nodule, which is wider than tall , with smooth margins, with echogenic foci. Prior size: No prior ISTHMUS: # of nodules measured in the isthmus: 0 Bilateral neck scanned, hypoechoic area with hyperechoic center seen within the left neck 1.7 x 0.9 x 0.5 cm. Can be compatible with the lymph node. IMPRESSION: 1. No suspicious thyroid nodules. Follow-up as clinically indicated
--- NOTE | 2022-04-26 14:34 | FL ---
EXAMINATION TYPE: FL barium swallow DATE OF EXAM: 04/26/2022 COMPARISON: 07/28/2009 upper GI HISTORY: Nausea vomiting dysphagia TECHNIQUE: A double air contrast UGI study is performed. FINDINGS: Patient vomited several times during this study. Horizontal drinking was not performed. The esophagus dilates to normal caliber and has a normal contour to the gastroesophageal junction. Ga stroesophageal junction opens to normal caliber. The stomach appears partially filled. There is delayed excretion of the contrast through the pylorus into the duodenum. In the right lateral decubitus position some excretion into the second portion of the duodenum was observed. Additional overhead radiographs were obtained in the upright position. Dany e fold hypertrophy of the proximal second portion of the duodenum is not excluded. Images: 106 Fluoroscopy time: 42 seconds IMPRESSIONS: 1. No suspicious esophageal abnormality to account for patient's symptoms. 2. The patient vomited during the examination. 3. Hesitancy emptying the stomach. Duodenal fold hypertrophy and duodenitis is not excluded. Consider additional workup of the upper gastrointestinal tract.
== END | disposition home or self-care (01) ==
LOC: RADUSWWP 10:57
PROVIDERS: ATTEND Family Medicine
DX: R11.0 Nausea (principal); R13.13 Dysphagia, pharyngeal phase
CPT/HCPCS: 74220; 76536

== ENCOUNTER → 2022-05-18 | Outpatient (CLI) | payer MEDICARE, OTHER ==
--- NOTE | 2022-05-18 15:44 | XR ---
EXAMINATION TYPE: XR abdomen acute w cxr DATE OF EXAM: 05/18/2022 COMPARISON: NONE HISTORY: 42-year-old male R11.2, abdominal pain, nausea with vomiting, unspecified. TECHNIQUE: Supine, upright, and left side down lateral decubitus views of the abdomen are obtained. FINDINGS: Lung bases are clear. No evidence for free intraperitoneal air. Heart normal size. Slightly low lung volumes with crowded v ascular markings. No ludivina consolidation or pleural effusion. No dilated small bowel or air-fluid levels. There is mild to moderate stool within the left side of t he colon. Overall mild stool burden. No suspicious calcifications are seen. IMPRESSION: 1. Lungs show hypoventilatory changes without definite acute process. 2. No evidence for free air or bowel obstruction. 3. Mild overall stool burden.
== END | disposition home or self-care (01) ==
LOC: RADXRMAIN 14:46
PROVIDERS: ATTEND Family Medicine
DX: R11.2 Nausea with vomiting, unspecified (principal); R19.5 Other fecal abnormalities
CPT/HCPCS: 74022

== ENCOUNTER 2022-07-14 08:39 | Day surgery (SDC) | payer MEDICARE, OTHER ==
[2022-07-12 09:37] VITALS: BMI 35.7
[~2022-07-14 08:39] MED LIST changes: +LIDOCAINE 1% (10MG/ML) FOR IV START INTRADERMA PRN
[2022-07-14 09:10] VITALS: TEMP 97.8
[2022-07-14] MEDS ORDERED: MIDAZOLAM 2 MG/2 ML VIAL ONE (09:30)
[2022-07-14] MEDS ORDERED: LIDOCAINE 2% INJ 20 MG/ML (2 ML VIAL) ONE (09:30)
[2022-07-14] MEDS ORDERED: PROPOFOL 10 MG/ML 20 ML VIAL IV ONE (09:30)
[2022-07-14] MEDS ORDERED: ONDANSETRON 4 MG/2 ML VIAL ONE (09:30)
[2022-07-14] MEDS ORDERED: fentaNYL (PF) 50 MCG/ML 2 ML AMP ONE (09:30)
--- NOTE | 2022-07-14 09:41 | P.PCN ---
Date of Procedure: 07/14/22 Procedure(s) Performed: BRIEF HISTORY: Patient is a 42-year-old, pleasant, white male scheduled for an upper endoscopy as a part of evaluation of nausea vomiting and epigastric pain for the last several months duration.. PROCEDURE PERFORMED: Esophagogastroduodenoscopy with biopsy. PREOPERATIVE DIAGNOSIS: Chronic intermittent nausea vomiting and epigastric pain of several years duration. IV sedation per anesthesia. PROCEDURE: After informed consent was obtained, the patient was brought into the endoscopy unit. IV sedation was administered by Anesthesia under continuous monitoring. Initially the Olympus GIF-140 video endoscope was inserted into the mouth. Esophagus intubated without any difficulty. It was gradually advanced into the stomach and duodenum and carefully examined. The bulb and the second part of the duodenum appeared normal. Biopsies were done from the duodenum to rule out celiac disease. The scope at this time was withdrawn to the stomach, adequately insufflated with air, and upon careful examination, mucosa of the antrum, had mild antral gastritis and biopsies were done from this area. Mucosa of the body, cardia and the fundus appeared normal. The scope was then withdrawn into the esophagus. The GE junction was located at 39 cm from the incisors. Small sliding-type well hernia noted. There were linear erosions and ulcerations in the distal esophagus consistent with LA grade C reflux esophagitis. The proximal cervical esophagus appeared normal and the patient tolerated the procedure well. IMPRESSION: 1. Mild antral gastritis. 2. Small hiatal hernia 3. Linear erosions and ulcerations in the distal esophagus consistent with LA grade C reflux esophagitis RECOMMENDATIONS: Findings of this examination were discussed with the patient as well as his family. He was advised to continue with Protonix 40 mg twice daily and Pepcid 40 mg at bedtime and follow antireflux measures.
[2022-07-14 09:47] LABS: Glucose,Whole Blood 112 mg/dL (70-110)
[2022-07-14 10:16] VITALS: BP 147/78; PULSE 89; RESP 20
== END 2022-07-14 10:47 | disposition home or self-care (01) ==
LOC: ORWHC2ENDO 08:39
PROVIDERS: ATTEND Internal Medicine Gastroenterology
DX: K29.50 Unspecified chronic gastritis without bleeding (principal); K44.9 Diaphragmatic hernia without obstruction or gangrene; K22.10 Ulcer of esophagus without bleeding; I10 Essential (primary) hypertension; E07.9 Disorder of thyroid, unspecified; F41.9 Anxiety disorder, unspecified; F32.A Depression, unspecified; Z88.8 Allergy status to other drugs, medicaments and biological substances; Z79.899 Other long term (current) drug therapy
CPT/HCPCS: 88305; 43239; J2250; J2405; J3010; J2704; J2001

== ENCOUNTER → 2022-08-02 | Outpatient (CLI) | payer MEDICARE, OTHER ==
[2022-08-02 21:59] LABS: Basophils # (A) 0.09 X 10*3/uL (0.00-0.10); Eosinophils # (A) 1.37 X 10*3/uL (0.04-0.35); Eosinophils % (A) 14.9 %; HCT 45.7 % (39.6-50.0); HGB 14.3 g/dL (13.0-17.0); Immature Grans, Automated 0.2 %; Lymphocytes # (A) 1.81 X 10*3/uL (0.90-5.00); Lymphocytes % (A) 19.7 %; MCH 26.9 pg (27.0-32.0); MCHC 31.3 g/dL (32.0-37.0); MCV 85.9 fL (80.0-97.0); Monocytes # (A) 0.55 X 10*3/uL (0.20-1.00); NRBC Per 100 WBC 0 /100 WBCS (0.0-0.0); Neutrophils # (A) 5.36 X 10*3/uL (1.80-7.70); Neutrophils % (A) 58.2 %; Platelet Count 377 X 10*3/uL (140-440); RBC 5.32 X 10*6/uL (4.40-5.60); RDW 13.8 % (11.5-14.5)
[2022-08-02 22:11] LABS: Immunoglobulin E 1.33 IU/mL (0.00-114.00)
[2022-08-03 01:51] LABS: Alternaria alternata IgE <0.10 kU/L; Aspergillus fumagatus IgE <0.10 kU/L; Birch IgE <0.10 kU/L; Cat Epith & Dander IgE <0.10 kU/L; Cladosporian herbarum IgE <0.10 kU/L; Cockroach IgE <0.10 kU/L; Dermato. farinae IgE <0.10 kU/L; Dog Dander IgE <0.10 kU/L; Elm IgE <0.10 kU/L; Maple (Box Elder) IgE <0.10 kU/L; Oak IgE <0.10 kU/L; Ragweed,Common IgE <0.10 kU/L; Red Top (Bentgrass) IgE <0.10 kU/L
[2022-08-03 14:15] LABS: Alt. alternata IgE Class CLASS 0; Alternaria alternata IgE <0.10 kU/L (<0.10); Asperg. fumagatus IgE <0.10 kU/L (<0.10); Asperg. fumagatus IgE Class CLASS 0; Bermuda Grass IgE <0.10 kU/L (<0.10); Birch(Com.Silvr) IgE <0.10 kU/L (<0.10); Birch(Com.Silvr) IgE Class CLASS 0; Cat Epith & Dander IgE <0.10 kU/L (<0.10); Cat Epith & Dander IgE Class CLASS 0; Clad herbarum IgE <0.10 kU/L (<0.10); Clad herbarum IgE Class CLASS 0; Cockroach IgE <0.10 kU/L (<0.10); Cottonwood IgE <0.10 kU/L (<0.10); Dermato. Pteronyssinus Class CLASS 0; Dermato. Pteronyssinus IgE <0.10 kU/L (<0.10); Dermato. farinae IgE <0.10 kU/L (<0.10); Dermato. farinae IgE Class CLASS 0; Dog Dander IgE <0.10 kU/L (<0.10); Elm IgE <0.10 kU/L (<0.10); IgE (Allergen) <2.0 IU/mL (<114.0); Maple (Box Elder) IgE <0.10 kU/L (<0.10); Maple (Box Elder) IgE Class CLASS 0; Mountain Cedar IgE <0.10 kU/L (<0.10); Mountain Cedar IgE Class CLASS 0; Mouse Urine IgE Class CLASS 0; Mouse Urine Proteins,IgE <0.10 kU/L (0.10); Nettle IgE <0.10 kU/L (<0.10); Nettle IgE Class CLASS 0; Oak IgE <0.10 kU/L (<0.10); Penicillium chrysogenum IgE <0.10 kU/L (<0.10); Penicillium chrysogenum IgE Cl CLASS 0; Rough Marshelder IgE <0.10 kU/L (<0.10); Rough Marshelder IgE Class CLASS 0; Timothy Grass IgE <0.10 kU/L (<0.10); Timothy Grass IgE Class CLASS 0; White Ash IgE Class CLASS 0
[2022-08-03 14:16] LABS: Com. Pigweed IgE <0.10 kU/L (<0.10); Com. Pigweed IgE Class CLASS 0; English Plantain IgE Class CLASS 0; Goldenrod IgE <0.10 kU/L (<0.10); Goldenrod IgE Class CLASS 0; Lamb's Quarter IgE <0.10 kU/L (<0.10); Lamb's Quarter IgE Class CLASS 0; Mugwort IgE Class CLASS 0; Sheep Sorrel IgE <0.10 kU/L (<0.10); Sheep Sorrel IgE Class CLASS 0
== END | disposition home or self-care (01) ==
LOC: LABWHC1 14:27
PROVIDERS: ATTEND Internal Medicine
DX: J30.9 Allergic rhinitis, unspecified (principal)
CPT/HCPCS: 36415; 82785; 85025; 86003

== ENCOUNTER 2022-08-09 14:47 | Inpatient (IN) | payer MEDICARE, MEDICAID ==
--- NOTE | 2022-08-09 16:27 | ED ---
Psych HPI - General Chief Complaint: Psychiatric Symptoms Stated Complaint: vomiting,Mental Health Time Seen by Provider: 08/09/22 15:01 Source: patient, family (Sister) Mode of arrival: ambulatory Limitations: no limitations - History of Present Illness Initial Comments: Patient is a 42-year-old man who is here to have evaluation in relation to a number of symptoms that have come on since he started taking an Hernández. The patient relates that has not been sleeping well. He also is hearing things and occasionally he reportedly sees people who aren't there. He also has been biting his tongue. Patient denies any suicidal or homicidal ideation. MD Complaint: other -: days(s) Associated Psychiatric Symptoms: racing thoughts, auditory hallucinations, other (Insomnia) Quality: intermittent Improves With: none Worsens With: none - Related Data Home Medications Medication Instructions Recorded Confirmed Dicyclomine [Bentyl] 20 mg PO BID 07/12/22 08/09/22 Docusate [Colace] 100 mg PO DAILY PRN 07/12/22 08/09/22 Empagliflozin [Jardiance] 10 mg PO DAILY 07/12/22 08/09/22 Famotidine 40 mg PO BID 07/12/22 08/09/22 Fenofibrate [Lofibra] 54 mg PO DAILY 07/12/22 08/09/22 Metoprolol Tartrate [Lopressor] 50 mg PO BID 07/12/22 08/09/22 Pantoprazole [Protonix] 40 mg PO DAILY 07/12/22 08/09/22 amLODIPine [Norvasc] 5 mg PO DAILY 07/12/22 08/09/22 lisinopriL 40 mg PO DAILY 07/12/22 08/09/22 methIMAzole [Tapazole] 5 mg PO DAILY 07/12/22 08/09/22 Atorvastatin [Lipitor] 40 mg PO HS 08/09/22 08/09/22 Menthol [Biofreeze] 1 applic TOPICAL DAILY PRN 08/09/22 08/09/22 Triamcinolone 0.025% Cream 1 applic TOPICAL DAILY 08/09/22 08/09/22 [Kenalog 0.025% Cream] hydroCHLOROthiazide [Hydrodiuril] 25 mg PO DAILY 08/09/22 08/09/22 Allergies Allergy/AdvReac Type Severity Reaction Status Date / Time aripiprazole [From Nevilleisatu] AdvReac erection Verified 08/09/22 16:28 that lasted over 24 hrs escitalopram [From Lexapro] AdvReac erection Verified 08/09/22 16:28 that lasted over 24 hrs hydroxyzine AdvReac 'bothers Verified 08/09/22 16:34 eyes" Review of Systems ROS Statement: Those systems with pertinent positive or pertinent negative responses have been documented in the HPI. ROS Other: All systems not noted in ROS Statement are negative. Constitutional: Denies: fever, chills Eyes: Denies: vision change Respiratory: Denies: cough, dyspnea Cardiovascular: Denies: chest pain, syncope Gastrointestinal: Denies: abdominal pain, vomiting, diarrhea Genitourinary: Denies: dysuria, hematuria Skin: Denies: rash Neurological: Denies: headache Psychiatric: Reports: anxiety, auditory hallucinations, visual hallucinations. Denies: homicidal thoughts, suicidal thoughts Past Medical History Past Medical History: GERD/Reflux, Hypertension, Osteoarthritis (OA), Skin Disorder Additional Past Medical History / Comment(s): blood in stool, psoriasis, dermatitis, "prediabetic"-diet control, anemia, sore left ankle-limps, dehydration, dysphagia, frequent vomiting, CYSTS IN ANKLES History of Any Multi-Drug Resistant Organisms: MRSA Date of last positivie culture/infection: 11/20/2012 MDRO Source:: back Past Surgical History: Orthopedic Surgery Additional Past Surgical History / Comment(s): COLONOSCOPY/EGD. RT HAND SX. SX FOR PROLONGED ERECTION Past Anesthesia/Blood Transfusion Reactions: Motion Sickness Past Psychological History: Anxiety, Depression Smoking Status: Never smoker Past Alcohol Use History: None Reported Past Drug Use History: None Reported - Past Family History Brother(s) Family Medical History: Cancer General Exam Limitations: no limitations General appearance: alert, in no apparent distress Head exam: Present: atraumatic, normocephalic Eye exam: Present: normal appearance. Absent: scleral icterus, conjunctival injection Respiratory exam: Present: normal lung sounds bilaterally. Absent: respiratory distress, wheezes, rales, rhonchi, stridor Cardiovascular Exam: Present: regular rate, normal rhythm, normal heart sounds. Absent: systolic murmur, diastolic murmur, rubs, gallop GI/Abdominal exam: Present: soft. Absent: distended, tenderness, guarding, rebound, rigid Extremities exam: Present: normal inspection, normal capillary refill. Absent: pedal edema, calf tenderness Back exam: Present: normal inspection. Absent: CVA tenderness (R), CVA tenderness (L) Neurological exam: Present: alert Psychiatric exam: Present: anxious. Absent: depressed, flat affect, manic, h omicidal ideation, suicidal ideation Skin exam: Present: warm, dry, intact, normal color. Absent: rash Course Vital Signs 08/09/22 08/09/22 08/09/22 14:48 16:13 20:00 Temperature 98.4 F 98.7 F Pulse Rate 89 78 Respiratory 20 16 Rate Blood Pressure 179/111 167/99 150/70 O2 Sat by Pulse 98 95 Oximetry Medical Decision Making - Medical Decision Making Was pt. sent in by a medical professional or institution (, PA, CAMP COUNSELOR, urgent care, hospital, or jail...) When possible be specific @ -[No] Did you speak to anyone other than the patient for history (EMS, parent, family, police, friend...)? What history was obtained from this source @ -[Patient's sister Did you review nursing and triage notes (agree or disagree)? Why? @ -[I reviewed and agree with nursing and triage notes] Were old charts reviewed (outside hosp., previous admission, EMS record, old EKG, old radiological studies, urgent care reports/EKG's, jail records)? Report findings @ -[old charts were reviewed] Differential Diagnosis (chest pain, altered mental status, abdominal pain women, abdominal pain men, vaginal bleeding, weakness, fever, dyspnea, syncope, headache, dizziness, GI bleed, back pain, seizure, CVA, palpatations, mental health, musculoskeletal)? @ -Differential Mental Health Depression, anxiety, bipolar, psychosis, schizophrenia, borderline personality, situational depression, adjustment disorder, behavioral disorder, brain tumor, malingering, substance abuse, encephalopathy, medication reaction, dementia, hypothyroidism, degenerative neurologic disorder, lupus.... This is not meant to be all-inclusive list EKG interpreted by me (3pts min.). @ -[ X-rays interpreted by me (1pt min.). @ -[None done] CT interpreted by me (1pt min.). @ -[None done] U/S interpreted by me (1pt. min.). @ -[None done] What testing was considered but not performed or refused? (CT, X-rays, U/S, labs)? Why? @ -[None] What meds were considered but not given or refused? Why? @ -[None] Did you discuss the management of the patient with other professionals (professionals i.e. , PA, CAMP COUNSELOR, lab, RT, psych nurse, mental health social worker, retail sales lead, teacher, medical laboratory technical officer, caser shoe parts)? Give summary @ -[No] Was smoking cessation discussed for >3mins.? @ -[No] Was critical care preformed (if so, how long)? @ -[No] Were there social determinants of health that impacted care today? How? (Homelessness, low income, unemployed, alcoholism, drug addiction, transportation, low edu. Level, literacy, decrease access to med. care, custodial, rehab)? @ -[No] Was there de-escalation of care discussed even if they declined (Discuss DNR or withdrawal of care, Hospice)? DNR status @ -[No] What co-morbidities impacted this encounter? (DM, HTN, Smoking, COPD, CAD, Cancer, CVA, ARF, Chemo, Hep., AIDS, mental health diagnosis, sleep apnea, morbid obesity)? @ -[None] Was patient admitted / discharged? Hospital course, mention meds given and route, prescriptions, significant lab abnormalities, going to OR and other pertinent info. @ -[Admitted Undiagnosed new problem with uncertain prognosis? @ -[No] Drug Therapy requiring intensive monitoring for toxicity (Heparin, Nitro, Insulin, Cardizem)? @ -[No] Were any procedures done? @ -[No] Diagnosis/symptom? @ -[Acute psychosis Acute, or Chronic, or Acute on Chronic? @ -[default] Uncomplicated (without systemic symptoms) or Complicated (systemic symptoms)? @ -[Uncomplicated Side effects of treatment? @ -[No] Exacerbation, Progression, or Severe Exacerbation? @ -[No] Poses a threat to life or bodily function? How? (Chest pain, USA, MS, pneumonia, PE, COPD, DKA, ARF, appy, cholecystitis, CVA, Diverticulitis, Homicidal, Suicidal, threat to staff... and all critical care pts) @ -[No] - Lab Data Result diagrams: 08/10/22 09:20 08/10/22 09:20 Lab Results 08/09/22 Range/Units 18:57 Coronavirus (PCR) Not Detected (Not Detectd) Disposition Clinical Impression: Psychosis Disposition: ADMITTED IP TO THIS HOSP Condition: Fair Is patient prescribed a controlled substance at d/c from ED?: No
[2022-08-09] MEDS ORDERED: LORazepam 1 MG TAB PO PRN (23:18)
[2022-08-09] MEDS ORDERED: MAGNESIUM HYDROXIDE 2,400 MG/10 ML CUP PO PRN (23:18)
[2022-08-09] MEDS ORDERED: MAG HYDROX/AL HYDROX/SIMETH 30 ML CUP PO PRN (23:18)
[2022-08-09] MEDS ORDERED: ACETAMINOPHEN TAB 325 MG TAB PO PRN (23:18)
[2022-08-09] MEDS ORDERED: HALOPERIDOL LACTATE 5 MG/ML 1 ML VIAL IM PRN (23:18)
[2022-08-09] MEDS ORDERED: DOCUSATE 100 MG CAP PO PRN (23:19)
[2022-08-09] MEDS ORDERED: DICYCLOMINE 20 MG TAB PO PRN (23:19)
[2022-08-09] MEDS ORDERED: hydrOXYzine HCL 25 MG TAB PO PRN (23:21)
[2022-08-09] MEDS ORDERED: haloperidoL 5 MG TAB PO PRN (23:22)
[2022-08-09] MEDS ORDERED: LORazepam 2 MG/ML INJ IM PRN (23:22)
[2022-08-10] MEDS: PANTOPRAZOLE 40 MG TABLET PO SCH ×3 (07:52→18:06)
[2022-08-10] MEDS: amLODIPine 5 MG TAB PO SCH ×2 (07:53→08:14)
[2022-08-10] MEDS: hydroCHLOROthiazide 25 MG TAB PO SCH ×2 (07:53→08:15)
[2022-08-10] MEDS: lisinopriL 20 MG TAB PO SCH ×2 (07:53→08:15)
[2022-08-10] MEDS: PALIPERIDONE 3 MG TAB.ER.24 PO SCH ×2 (07:53→08:16)
[2022-08-10] MEDS: FAMOTIDINE 20 MG TAB PO SCH ×3 (07:54→22:19)
[2022-08-10] MEDS: DAPAGLIFLOZIN PROPANEDIOL 5 MG TABLET PO SCH ×2 (07:56→08:14)
[2022-08-10] MEDS: FENOFIBRATE 54 MG TAB PO SCH ×2 (07:56→08:14)
[2022-08-10] MEDS: methIMAzole 5 MG TAB PO SCH ×2 (07:56→08:15)
[2022-08-10] MEDS: METOPROLOL TARTRATE 50 MG TAB PO SCH ×3 (07:57→22:18)
[2022-08-10] MEDS: NICOTINE 14MG/24HR PATCH TRANSDERM SCH (08:15)
[2022-08-10] MEDS: TRIAMCINOLONE 0.1% CREAM 80 GM TUBE TOPICAL SCH (08:16)
[2022-08-10 09:33] LABS: Basophils # (A) 0.1 k/uL (0-0.2); Basophils % (A) 1 %; Eosinophils # (A) 1.1 k/uL (0-0.7); Eosinophils % (A) 12 %; HGB 14.2 gm/dL (13.0-17.5); Lymphocytes # (A) 1.7 k/uL (1.0-4.8); Lymphocytes % (A) 18 %; MCH 27.3 pg (25.0-35.0); MCHC 32.3 g/dL (31.0-37.0); MCV 84.7 fL (80.0-100.0); Mean Platelet Volume 7.5; Monocytes # (A) 0.4 k/uL (0-1.0); Monocytes % (A) 4 %; Neutrophils # (A) 5.9 k/uL (1.3-7.7); Neutrophils % (A) 64 %; Platelet Count 317 k/uL (150-450); RBC 5.19 m/uL (4.30-5.90); RDW 13.4 % (11.5-15.5); WBC 9.3 k/uL (3.8-10.6)
[2022-08-10 09:48] LABS: ALT 31 U/L (4-49); AST 28 U/L (17-59); African American GFR (CKD) >90 (>60 ml/min/1.73 sqM); Alkaline Phosphatase 89 U/L (38-126); Anion Gap 6 mmol/L; Blood Urea Nitrogen 10 mg/dL (9-20); Calcium 8.8 mg/dL (8.4-10.2); Carbon Dioxide 28 mmol/L (22-30); Chloride 106 mmol/L (98-107); Glucose 127 mg/dL (74-99); Non-African American GFR(CKD) >90 (>60 ml/min/1.73 sqM); Potassium 4.1 mmol/L (3.5-5.1); Sodium 140 mmol/L (137-145); Total Bilirubin 0.9 mg/dL (0.2-1.3); Total Protein 6.7 g/dL (6.3-8.2)
[2022-08-10] MEDS ORDERED: OLANZapine ODT 5 MG TAB PO STA (10:25)
[2022-08-10] MEDS ORDERED: ONDANSETRON ODT 4 MG TAB PO PRN (10:27)
[2022-08-10] MEDS ORDERED: CALCIUM CARBONATE 500 MG CHEWABLE PO PRN (13:42)
--- NOTE | 2022-08-10 13:45 | P.CONS ---
History of Present Illness - Reason for Consult Consult date: 08/10/22 Medical - History of Present Illness This is a pleasant 42 year old male with medical history of Manic Bipolar, autism, GERD, hypertension. Patient presents to the hospital for psychiatric evaluation and concern for hallucinations and intrusive thoughts telling him to do bad things. Patient states he is not going to act on the thoughts. He does not elaborate but also does state he is seeing things that he knows arent there. Patient follows at [facility] states he was on Abilify in the past and was taken off for similar symptoms, he was then placed on Invega back in January and patient states that is when the symptoms started. He feels he is not being treated for his actual medical conditions, states these are "schizophrenic" medications and he does not have schizophrenia. Patient reports his provider at [facility] was lying to him and telling him his dad want's him committed and that this provider had told the others at [facility] he has this diagnosis. Patient also reports esophogeal discomfort and burning states he had thrown up this morning when he took his medication. He has history of gastroesophageal reflux disease and follows outpatient with Dr. Guillaume Bonilla. He had an upper endoscopy done in June of 2022 showing mild antral gastritis, small hiatal hernia, linear erosions and ulcerations in the distal esophagus consistent with LA grade C reflux esophagitis. Patient has been maintained on protonix BID and pepcid at which will be continued here. Also recommend patient to have a diet that limits acidic foods. Patient also has had issues with constipation since he was placed on the Invega and is scheduled to have colonoscopy on August [address] Bonilla. Patient lives with his sister and dad. He reports no chest pain, no shortness of breath. No nausea and no diarrhea. No fever/chills. He is pending psychiatric evaluation. REVIEW OF SYSTEMS: CONSTITUTIONAL: No fever, no malaise, no fatigue. HEENT: No recent visual problems or hearing problems. Denied any sore throat. CARDIOVASCULAR: No chest pain, orthopnea, PND, no palpitations, no syncope. PULMONARY: No shortness of breath, no cough, no hemoptysis. GASTROINTESTINAL: No diarrhea,no abdominal pain. Reports esophageal pain/burning and reports vomiting. NEUROLOGICAL: No headaches, no weakness, no numbness. HEMATOLOGICAL: Denies any bleeding or petechiae. GENITOURINARY: Denies any burning micturition, frequency, or urgency. MUSCULOSKELETAL/RHEUMATOLOGICAL: Denies any joint pain, swelling, or any muscle pain. ENDOCRINE: Denies any polyuria or polydipsia. The rest of the 14-point review of systems is negative. PHYSICAL EXAMINATION: GENERAL: The patient is alert and oriented x3, not in any acute distress. Well developed, well nourished. HEENT: Pupils are round and equally reacting to light. EOMI. No scleral icterus. No conjunctival pallor. Normocephalic, atraumatic. No pharyngeal erythema. No thyromegaly. CARDIOVASCULAR: S1 and S2 present. No murmurs, rubs, or gallops. PULMONARY: Chest is clear to auscultation, no wheezing or crackles. ABDOMEN: Soft, nontender, nondistended, normoactive bowel sounds. No palpable organomegaly. MUSCULOSKELETAL: No joint swelling or deformity. EXTREMITIES: No cyanosis, clubbing, or pedal edema. NEUROLOGICAL: Gross neurological examination did not reveal any focal deficits. SKIN: No rashes. Assessment and Plan Assessment Acute psychosis with hallucination auditory and visual History of bipolar manic type per patient Hx Autism spectrum disorder Gastroesophageal reflux disease with gastritis and esophagitis maintained on PPI Hypertension Constipation Hx of anxiety/depression Hx of psoriasis GI prophylaxis on protonix BID and pepcid HS. Early ambulation Full Code Plan Resume appropriate home medications Continue protonix BID and pepcid HS Recommend bland diet to avoid stomach irritation Tums/Maalox as needed. Labs reviewed Thank you for this consultation we will follow along as needed this hospital stay. The impression and plan of care has been dictated by Vanita Chin, Nurse Practitioner as directed. Dr. Rose MD I have performed a history and physical examination and medical decision making of this patient, discussed the same with the dictator, and agree with the dictators assessment and plan as written, documented as a scribe. Based on total visit time, I have performed more than 50% of this visit. Past Medical History Past Medical History: GERD/Reflux, Hypertension, Osteoarthritis (OA), Skin Disorder Additional Past Medical History / Comment(s): blood in stool, psoriasis, dermatitis, "prediabetic"-diet control, anemia, sore left ankle-limps, dehydration, dysphagia, frequent vomiting, CYSTS IN ANKLES History of Any Multi-Drug Resistant Organisms: MRSA Year Discovered:: 11/20/2012 MDRO Source:: back Past Surgical History: Orthopedic Surgery Additional Past Surgical History / Comment(s): COLONOSCOPY/EGD. RT HAND SX. SX FOR PROLONGED ERECTION Past Anesthesia/Blood Transfusion Reactions: Motion Sickness Past Psychological History: Anxiety, Depression Additional Psychological History / Comment(s): major depression Smoking Status: Never smoker Past Alcohol Use History: None Reported Past Drug Use History: None Reported - Past Family History Brother(s) Family Medical History: Cancer Medications and Allergies Home Medications Medication Instructions Recorded Confirmed Type Dicyclomine [Bentyl] 20 mg PO BID 07/12/22 08/09/22 History Docusate [Colace] 100 mg PO DAILY PRN 07/12/22 08/09/22 History Empagliflozin [Jardiance] 10 mg PO DAILY 07/12/22 08/09/22 History Famotidine 40 mg PO BID 07/12/22 08/09/22 History Fenofibrate [Lofibra] 54 mg PO DAILY 07/12/22 08/09/22 History Metoprolol Tartrate [Lopressor] 50 mg PO BID 07/12/22 08/09/22 History Pantoprazole [Protonix] 40 mg PO DAILY 07/12/22 08/09/22 History amLODIPine [Norvasc] 5 mg PO DAILY 07/12/22 08/09/22 History lisinopriL 40 mg PO DAILY 07/12/22 08/09/22 History methIMAzole [Tapazole] 5 mg PO DAILY 07/12/22 08/09/22 History Atorvastatin [Lipitor] 40 mg PO HS 08/09/22 08/09/22 History Menthol [Biofreeze] 1 applic TOPICAL DAILY PRN 08/09/22 08/09/22 History Triamcinolone 0.025% Cream 1 applic TOPICAL DAILY 08/09/22 08/09/22 History [Kenalog 0.025% Cream] hydroCHLOROthiazide [Hydrodiuril] 25 mg PO DAILY 08/09/22 08/09/22 History Allergies Allergy/AdvReac Type Severity Reaction Status Date / Time aripiprazole [From Abilify] AdvReac erection Verified 08/09/22 16:28 that lasted over 24 hrs escitalopram [From Lexapro] AdvReac erection Verified 08/09/22 16:28 that lasted over 24 hrs hydroxyzine AdvReac 'bothers Verified 08/09/22 16:34 eyes" Physical Exam Vitals: Vital Signs Temp Pulse Pulse Resp BP BP Pulse Ox 08/09/22 22:25 97.6 F 77 16 143/91 98 08/09/22 20:00 98.7 F 78 16 150/70 95 08/09/22 16:13 167/99 08/09/22 14:48 98.4 F 89 20 179/111 98 Intake and Output 08/09/22 08/10/22 08/10/22 22:59 06:59 14:59 Other: Weight 109.316 kg Results CBC & Chem 7: 08/10/22 09:20 08/10/22 09:20 Assessment and Plan Time with Patient: Less than 30
--- NOTE | 2022-08-10 14:10 | P.HP ---
Psychiatric H&P - . H&P Date: 08/10/22 History & Physical: Allergies Allergy/AdvReac Type Severity Reaction Status Date / Time aripiprazole [From Abilify] AdvReac erection Verified 08/09/22 16:28 that lasted over 24 hrs escitalopram [From Lexapro] AdvReac erection Verified 08/09/22 16:28 that lasted over 24 hrs hydroxyzine AdvReac 'bothers Verified 08/09/22 16:34 eyes" Vital Signs Temp 97.6 F 08/09/22 22:25 Pulse 77 08/09/22 22:25 Resp 16 08/09/22 22:25 BP 143/91 08/09/22 22:25 Pulse Ox 98 08/09/22 22:25 FiO2 Intake & Output 08/09/22 08/10/22 08/10/22 18:59 06:59 18:59 Weight 108.862 kg 109.316 kg Laboratory Last Values WBC 9.3 k/uL (3.8-10.6) 08/10/22 09:20 RBC 5.19 m/uL (4.30-5.90) 08/10/22 09:20 Hgb 14.2 gm/dL (13.0-17.5) 08/10/22 09:20 Hct 44.0 % (39.0-53.0) 08/10/22 09:20 MCV 84.7 fL (80.0-100.0) 08/10/22 09:20 MCH 27.3 pg (25.0-35.0) 08/10/22 09:20 MCHC 32.3 g/dL (31.0-37.0) 08/10/22 09:20 RDW 13.4 % (11.5-15.5) 08/10/22 09:20 Plt Count 317 k/uL (150-450) 08/10/22 09:20 MPV 7.5 08/10/22 09:20 Neutrophils % 64 % 08/10/22 09:20 Lymphocytes % 18 % 08/10/22 09:20 Monocytes % 4 % 08/10/22 09:20 Eosinophils % 12 % 08/10/22 09:20 Basophils % 1 % 08/10/22 09:20 Neutrophils # 5.9 k/uL (1.3-7.7) 08/10/22 09:20 Lymphocytes # 1.7 k/uL (1.0-4.8) 08/10/22 09:20 Monocytes # 0.4 k/uL (0-1.0) 08/10/22 09:20 Eosinophils # 1.1 k/uL (0-0.7) H 08/10/22 09:20 Basophils # 0.1 k/uL (0-0.2) 08/10/22 09:20 Sodium 140 mmol/L (137-145) 08/10/22 09:20 Potassium 4.1 mmol/L (3.5-5.1) 08/10/22 09:20 Chloride 106 mmol/L (98-107) 08/10/22 09:20 Carbon Dioxide 28 mmol/L (22-30) 08/10/22 09:20 Anion Gap 6 mmol/L 08/10/22 09:20 BUN 10 mg/dL (9-20) 08/10/22 09:20 Creatinine 0.87 mg/dL (0.66-1.25) 08/10/22 09:20 Est GFR (CKD-EPI)AfAm >90 (>60 ml/min/1.73 sqM) 08/10/22 09:20 Est GFR (CKD-EPI)NonAf >90 (>60 ml/min/1.73 sqM) 08/10/22 09:20 Glucose 127 mg/dL (74-99) H 08/10/22 09:20 Calcium 8.8 mg/dL (8.4-10.2) 08/10/22 09:20 Total Bilirubin 0.9 mg/dL (0.2-1.3) 08/10/22 09:20 AST 28 U/L (17-59) 08/10/22 09:20 ALT 31 U/L (4-49) 08/10/22 09:20 Alkaline Phosphatase 89 U/L (38-126) 08/10/22 09:20 Total Protein 6.7 g/dL (6.3-8.2) 08/10/22 09:20 Albumin 4.0 g/dL (3.5-5.0) 08/10/22 09:20 TSH 0.015 mIU/L (0.465-4.680) L 08/10/22 09:20 Free T4 1.73 ng/dL (0.78-2.19) 08/10/22 09:20 Coronavirus (PCR) Not Detected (Not Detectd) 08/09/22 18:57 08/10/22 14:09 IDENTIFYING DATA: Patient is a single, on SSDI, 42-year-old male with significant history of autism spectrum disorder who presented to our hospital on 08/09/2022 for psychiatric evaluation. HPI: Patient presented to the hospital on 08/09/2022, brought into the emergency department by his sister for psychiatric evaluation. Reportedly, the patient has been experiencing a manic episode and was tangential in conversation, endorsing paranoia, and displaying nonsensical speech. The patient reported to the EPS nurse that he has been adherent with his medication however feels like the Invega medication has been causing him significant problems including hearing voices, "talking crazy," and making him paranoid. Reportedly, the patient believed that his doctor at [facility] was in his home stealing medications from him. The patient signed himself voluntarily on to the psychiatric unit. Upon evaluation on the psychiatric unit, the patient reports that he has been having significant issues regarding nausea and vomiting. The patient reports that he was vomiting this morning and was not able to keep down his breakfast or his morning medications. He does report that he has been feeling increasingly paranoid in his home believing that there were people who were present in the home that are not really there. He does report auditory hallucinations but describes this as a voice calling his name only. He reports visual hallucinations in the form of people being present in the home at the corner of his sight. The patient does state that he has been having difficulty with sleep. He reports that over the last few days he only received 3-4 hours of sleep. He denies any suicidal or homicidal ideation, intention, and/or plan. The patient endorses numerous somatic complaints. He reports issues regarding nausea and vomiting which he attributes to his invega. He also states his hallucinations are from his invega. He states he has been on numerous medications but always had "adverse reactions" including prolong erections, nausea, fever, chills, numbness, and hallucinations. He states he is concerned if medications would cause his "mouth to burn." He is admitted for further evaluation and treatment. PAST PSYCHIATRIC HISTORY: Patient has previous diagnoses of autism spectrum disorder. The patient has tried numerous medications including Wellbutrin, Abilify, Lexapro, Tegretol, Remeron, and Vistaril. He reports side effects of all these medications. He said he is ALLERGIC to Abilify, Lexapro, and Vistaril. This is the patient's second inpatient psychiatric hospitalization. He was first hospitalized in a psychiatric unit in 2007. He is currently open with [facility]. Patient denies any history of suicide attempts in the past. PMH: Past Medical History: GERD/Reflux, Hypertension, Osteoarthritis (OA), Skin Disorder Additional Past Medical History / Comment(s): blood in stool, psoriasis, dermatitis, "prediabetic"-diet control, anemia, sore left ankle-limps, dehydration, dysphagia, frequent vomiting, CYSTS IN ANKLES History of Any Multi-Drug Resistant Organisms: MRSA Date of last positivie culture/infection: 11/20/2012 MDRO Source:: back Past Surgical History: Orthopedic Surgery Additional Past Surgical History / Comment(s): COLONOSCOPY/EGD. RT HAND SX. SX FOR PROLONGED ERECTION Past Anesthesia/Blood Transfusion Reactions: Motion Sickness Past Psychological History: Anxiety, Depression Smoking Status: Never smoker Past Alcohol Use History: None Reported Past Drug Use History: None Reported ALLERGIES: Abilify, Lexapro, Vistaril CHEMICAL DEPENDENCY HISTORY: Patient denies any tobacco, alcohol, marijuana, or illicit drug use. FAMILY PSYCHIATRIC/SUBSTANCE USE HISTORY: The patient reports that his sister is bipolar. SOCIAL HISTORY: Patient was born and raised in reports her on. He is single, never , and has no children. He attended some college. He reports he is studying criminal justice. He currently receives Social Security disability income. He currently lives with his sister and father. He states that he recently started going to yazdanism. He reports various interests including tattoos, movies, playing billiards. MENTAL STATUS EXAM: General Appearance: Patient appears to be stated age is alert, directable, and attempts to cooperate. Patient appears to have disheveled hygiene and grooming. Seborrheic dermatitis evident. Behavior: Patient is seated without any agitated behavior. Patient appears to be restless and ambulates in a bizarre fashion. Speech: Patient's speech is spontaneous, monotone. Mood/Affect: Patient reports their mood is "not good, I feel sick." , affect is nervous. Suicidality/Homicidality: Patient denies any suicidal or homicidal ideation. Perceptions: Patient denies any current auditory or visual hallucinations. Though content/process: Patient endorses numerous somatic complaints. Memory and concentration: AOX3, grossly intact for the purposes of this session. Can spell "WORLD" backwards Judgment and insight: Poor STRENGTHS/WEAKNESSES: Strengths that the patient has supportive family and receives Social Security disability income. Weakness is that the patient has autism spectrum disorder and poor frustration tolerance. INTELLECT: Below average to average IMPRESSIONS: Autism spectrum disorder Somatic symptoms disorder Rule out bipolar 2 disorder PLAN: -Patient is admitted under voluntary status to MHU for stabilization of psychiatric symptoms and safety. Patient signed adult voluntary form and medication consent and is placed in patient's chart. -[facility] places speech-language pathology to evaluate swallowing -Medications : Start Zyprexa zydis 5 mg by mouth twice a day for somatic symptom disorder/psychosis Klonopin 0.5 mg by mouth twice a day for anxiety -Ativan and Haldol PRN for agitation/aggression -Patient was provided with psychoeducation on somatic symptom disorder. -Patient was informed of the risks, benefits and side effects of the medication and patient verbally consented to taking the medications. Patient signed med consent form and was placed in chart. -Internal Medicine consult to perform medical evaluation and physical. - on board for discharge planning. Encourage patient to participate in groups to work on coping skills. 08/10/22 14:09
[2022-08-10] MEDS: ATORVASTATIN 40 MG TAB PO SCH (22:17)
[2022-08-10] MEDS: clonazePAM 0.5 MG TAB PO SCH (22:18)
[2022-08-10] MEDS: OLANZapine ODT 5 MG TAB PO SCH (22:18)
[2022-08-11] MEDS: DAPAGLIFLOZIN PROPANEDIOL 5 MG TABLET PO SCH (08:14)
[2022-08-11] MEDS: methIMAzole 5 MG TAB PO SCH (08:14)
[2022-08-11] MEDS: OLANZapine ODT 5 MG TAB PO SCH (08:14)
[2022-08-11] MEDS: FENOFIBRATE 54 MG TAB PO SCH (08:14)
[2022-08-11] MEDS: amLODIPine 5 MG TAB PO SCH (08:15)
[2022-08-11] MEDS: clonazePAM 0.5 MG TAB PO SCH ×2 (08:15→21:08)
[2022-08-11] MEDS: METOPROLOL TARTRATE 50 MG TAB PO SCH ×2 (08:15→21:08)
[2022-08-11] MEDS: lisinopriL 20 MG TAB PO SCH (08:15)
[2022-08-11] MEDS: PANTOPRAZOLE 40 MG TABLET PO SCH ×2 (08:16→17:46)
[2022-08-11] MEDS: NICOTINE 14MG/24HR PATCH TRANSDERM SCH (08:16)
[2022-08-11] MEDS: TRIAMCINOLONE 0.1% CREAM 80 GM TUBE TOPICAL SCH (08:17)
--- NOTE | 2022-08-11 15:37 | P.PN ---
Progress Note - Text Progress Note Date: 08/11/22 Interval History: Patient was seen laying in bed and was directable and agreeable to speak with song writer in the office. He says that he has noticed slightly decreased auditory hallucinations since being started on Zyprexa. However, patient continues to be somatically focused and discusses back pain which he says he has chronically. Patient hs paranoid delusions that an outpatient doctor has been messing with his medications, has been breaking and entering into his house, and stealing his scripts. When asked for evidence, he states that he heard a door open while at home. He says he slept better last night. Patient states that he is feeling quite tired this morning and was agreeable to taking the Zyprexa all at nighttime. Per nursing report, patient had an episode of emesis this morning which is being monitored by medical team as well. Per medical team report, kym martinez has a small hiatal hernia and has a history of gastritis for which he is receiving treatment. Patient denies other concerns. At this time patient denies any suicidal or homicidal ideations, intent or plan. Patient denies any auditory and visual hallucinations. Patient denies any side effects from the medications and has been compliant with meds. Mental Status Exam: General Appearance: Patient appears to be stated age is alert, directable, and attempts to cooperate. Patient appears to have disheveled hygiene and grooming. Seborrheic dermatitis evident. Behavior: Patient is seated without any agitated behavior. Patient appears to be restless and ambulates in a bizarre fashion. Speech: Patient's speech is spontaneous, monotone. Mood/Affect: Patient reports their mood is "better" , affect is anxious. Suicidality/Homicidality: Patient denies any suicidal or homicidal ideation. Perceptions: Patient denies any current auditory or visual hallucinations. Though content/process: Patient endorses numerous somatic complaints. Memory and concentration: AOX3, grossly intact for the purposes of this session. Judgment and insight: Poor Assessment Psychotic disorder, unspecified Autism spectrum disorder Somatic symptom disorder Rule out bipolar 2 disorder Plan: -Patient is admitted under voluntary status to MHU for stabilization of psychiatric symptoms and safety. Patient signed adult voluntary form and medication consent and is placed in patient's chart. -[facility] places speech-language pathology to evaluate swallowing -Medications : Change Zyprexa zydis to 10 mg by mouth at bedtime for somatic symptom disorder/psychosis Klonopin 0.5 mg by mouth twice a day for anxiety -Ativan and Haldol PRN for agitation/aggression -Patient was provided with psychoeducation on somatic symptom disorder. -Patient was informed of the risks, benefits and side effects of the medication and patient verbally consented to taking the medications. Patient signed med consent form and was placed in chart. -Internal Medicine consult to perform medical evaluation and physical. -SW on board for discharge planning. Encourage patient to participate in groups to work on coping skills.
[2022-08-11] MEDS: FAMOTIDINE 20 MG TAB PO SCH (21:08)
[2022-08-11] MEDS: ATORVASTATIN 40 MG TAB PO SCH (21:08)
[2022-08-11] MEDS: OLANZapine ODT 10 MG TAB PO SCH (21:08)
[2022-08-12] MEDS: DAPAGLIFLOZIN PROPANEDIOL 5 MG TABLET PO SCH (09:07)
[2022-08-12] MEDS: methIMAzole 5 MG TAB PO SCH (09:08)
[2022-08-12] MEDS: amLODIPine 5 MG TAB PO SCH (09:08)
[2022-08-12] MEDS: lisinopriL 20 MG TAB PO SCH (09:08)
[2022-08-12] MEDS: METOPROLOL TARTRATE 50 MG TAB PO SCH ×2 (09:08→20:45)
[2022-08-12] MEDS: clonazePAM 0.5 MG TAB PO SCH ×2 (09:08→20:46)
[2022-08-12] MEDS: PANTOPRAZOLE 40 MG TABLET PO SCH ×2 (09:08→17:33)
[2022-08-12] MEDS: FENOFIBRATE 54 MG TAB PO SCH (09:08)
[2022-08-12] MEDS: TRIAMCINOLONE 0.1% CREAM 80 GM TUBE TOPICAL SCH (09:09)
[2022-08-12] MEDS: NICOTINE 14MG/24HR PATCH TRANSDERM SCH (10:23)
--- NOTE | 2022-08-12 15:15 | P.PN ---
Progress Note - Text Progress Note Date: 08/12/22 Interval History: Patient was seen laying in bed and was directable and agreeable to speak with tag writer in the office. He says he is doing much better with Zyprexa. He says that he is no longer "seeing things" but was noted to be expressing that to the nurse this morning. However, patient continues to be somatically focused and discusses back pain which he says he has chronically. Patient continues to express paranoid delusions that an outpatient doctor has been messing with his medications. He says he slept better last night. Patient states that he is feeling less tired today. Patient says he worries often and appears to be anxious. Patient denies other concerns. At this time patient denies any suicidal or homicidal ideations, intent or plan. Patient denies any auditory and visual hallucinations. Patient denies any side effects from the medications and has been compliant with meds. Mental Status Exam: General Appearance: Patient appears to be stated age is alert, directable, and attempts to cooperate. Patient appears to have disheveled hygiene and grooming. Seborrheic dermatitis evident. Behavior: Patient is seated without any agitated behavior. Not restless Speech: Patient's speech is spontaneous, monotone. Mood/Affect: Patient reports their mood is "better" , affect is anxious. Suicidality/Homicidality: Patient denies any suicidal or homicidal ideation. Perceptions: Patient denies any current auditory or visual hallucinations. Though content/process: Patient endorses numerous somatic complaints. Memory and concentration: AOX3, grossly intact for the purposes of this session. Judgment and insight: Poor Assessment Psychotic disorder, unspecified Anxiety disorder, unspecified Autism spectrum disorder Somatic symptom disorder R/o bipolar 2 disorder Plan: -Patient is admitted under voluntary status to MHU for stabilization of psych iatric symptoms and safety. Patient signed adult voluntary form and medication consent and is placed in patient's chart. -Consul places speech-language pathology to evaluate swallowing -Medications : Start Zoloft 25 mg daily for anxiety. Will monitor closely for manic symptoms Continue Zyprexa zydis 10 mg by mouth at bedtime for somatic symptom disorder/psychosis Klonopin 0.5 mg by mouth twice a day for anxiety -Ativan and Haldol PRN for agitation/aggression -Patient was provided with psychoeducation on somatic symptom disorder. -Patient was informed of the risks, benefits and side effects of the medication and patient verbally consented to taking the medications. Patient signed med consent form and was placed in chart. -Internal Medicine consult to perform medical evaluation and physical. -SW on board for discharge planning. Encourage patient to participate in groups to work on coping skills.
[2022-08-12] MEDS: OLANZapine ODT 10 MG TAB PO SCH (20:44)
[2022-08-12] MEDS: ATORVASTATIN 40 MG TAB PO SCH (20:45)
[2022-08-12] MEDS: FAMOTIDINE 20 MG TAB PO SCH ×2 (20:45→20:46)
[2022-08-13 06:42] VITALS: RESP 17
[2022-08-13] MEDS: PANTOPRAZOLE 40 MG TABLET PO SCH ×2 (10:00→17:26)
[2022-08-13] MEDS: lisinopriL 20 MG TAB PO SCH (10:04)
[2022-08-13] MEDS: amLODIPine 5 MG TAB PO SCH (10:04)
[2022-08-13] MEDS: clonazePAM 0.5 MG TAB PO SCH ×2 (10:04→21:37)
[2022-08-13] MEDS: METOPROLOL TARTRATE 50 MG TAB PO SCH ×2 (10:05→21:37)
[2022-08-13] MEDS: DAPAGLIFLOZIN PROPANEDIOL 5 MG TABLET PO SCH (10:06)
[2022-08-13] MEDS: FENOFIBRATE 54 MG TAB PO SCH (10:06)
[2022-08-13] MEDS: methIMAzole 5 MG TAB PO SCH (10:06)
[2022-08-13] MEDS: NICOTINE 14MG/24HR PATCH TRANSDERM SCH (10:07)
[2022-08-13] MEDS: SERTRALINE 25 MG TAB PO SCH (10:07)
[2022-08-13] MEDS: TRIAMCINOLONE 0.1% CREAM 80 GM TUBE TOPICAL SCH ×2 (10:09→12:37)
--- NOTE | 2022-08-13 16:28 | P.PN ---
Progress Note - Text Progress Note Date: 08/13/22 Interval History: Patient was seen laying in bed and was directable and agreeable to speak with lead technical writer in the office. Patient had a long list of questions that he asked this provider at length including concerns about his swallowing and other somatic concerns. He was asked to see a dentist for his concerns about his teeth. Patient says that he "saw something on the floor "before taking morning medication which he says has resolved after this. He said he had trouble s leeping last night and was agreeable with adding melatonin. Patient denies other concerns. At this time patient denies any suicidal or homicidal ideations, intent or plan. Patient denies any auditory and visual hallucinations. Patient denies any side effects from the medications and has been compliant with meds. Mental Status Exam: General Appearance: Patient appears to be stated age is alert, directable, and attempts to cooperate. Patient appears to have disheveled hygiene and grooming. Seborrheic dermatitis evident. Behavior: Patient is seated without any agitated behavior. Not restless Speech: Patient's speech is spontaneous, monotone. Mood/Affect: Patient reports their mood is "okay I guess" , affect is anxious. Suicidality/Homicidality: Patient denies any suicidal or homicidal ideation. Perceptions: Patient denies any current auditory or visual hallucinations. Though content/process: Patient endorses numerous somatic complaints. Memory and concentration: AOX3, grossly intact for the purposes of this session. Judgment and insight: Poor Assessment Psychotic disorder, unspecified Anxiety disorder, unspecified Autism spectrum disorder Somatic symptom disorder R/o bipolar 2 disorder Plan: -Patient is admitted under voluntary status to MHU for stabilization of psychiatric symptoms and safety. Patient signed adult voluntary form and medication consent and is placed in patient's chart. -Consul places speech-language pathology to evaluate swallowing -Medications : Zoloft 25 mg daily for anxiety. Will monitor closely for manic symptoms Continue Zyprexa zydis 10 mg by mouth at bedtime for somatic symptom disorder/psychosis Klonopin 0.5 mg by mouth twice a day for anxiety Add melatonin 5 mg qHS -Ativan and Haldol PRN for agitation/aggression -Patient was provided with psychoeducation on somatic symptom disorder. -Patient was informed of the risks, benefits and side effects of the medication and patient verbally consented to taking the medications. Patient signed med consent form and was placed in chart. -Internal Medicine consult to perform medical evaluation and physical. -SW on board for discharge planning. Encourage patient to participate in groups to work on coping skills.
[2022-08-13] MEDS: OLANZapine ODT 10 MG TAB PO SCH (21:37)
[2022-08-13] MEDS: MELATONIN 5 MG TABLET PO SCH (21:37)
[2022-08-13] MEDS: ATORVASTATIN 40 MG TAB PO SCH (21:37)
[2022-08-13] MEDS: FAMOTIDINE 20 MG TAB PO SCH (21:38)
[2022-08-14 09:17] LABS: Glucose,Whole Blood 210 mg/dL (70-110)
[2022-08-14] MEDS: PANTOPRAZOLE 40 MG TABLET PO SCH ×2 (12:24→17:00)
[2022-08-14] MEDS: FENOFIBRATE 54 MG TAB PO SCH (12:25)
[2022-08-14] MEDS: lisinopriL 20 MG TAB PO SCH (12:25)
[2022-08-14] MEDS: DAPAGLIFLOZIN PROPANEDIOL 5 MG TABLET PO SCH (12:25)
[2022-08-14] MEDS: amLODIPine 5 MG TAB PO SCH (12:25)
[2022-08-14] MEDS: clonazePAM 0.5 MG TAB PO SCH ×2 (12:25→21:04)
[2022-08-14] MEDS: SERTRALINE 25 MG TAB PO SCH (12:26)
[2022-08-14] MEDS: methIMAzole 5 MG TAB PO SCH (12:26)
[2022-08-14] MEDS: NICOTINE 14MG/24HR PATCH TRANSDERM SCH (12:26)
[2022-08-14] MEDS: METOPROLOL TARTRATE 50 MG TAB PO SCH ×2 (12:26→21:04)
[2022-08-14] MEDS: TRIAMCINOLONE 0.1% CREAM 80 GM TUBE TOPICAL SCH (12:26)
--- NOTE | 2022-08-14 14:33 | P.PN ---
Progress Note - Text Progress Note Date: 08/14/22 S&O: Patient was seen in rounds. He usually stays by himself and does not socialize much. He said he has difficulty in swallowing tablets since he cannot swallow them and throws them up. But he said he can take Zyprexa easily since it melts in his mouth. He has the diagnosis of autism Spectrum disorder and said sometimes he sees the floor move when it is not actually moving. He denies any history of manic or depressive episodes. 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 He was shy and not able to make friends or socialize with others easily. He has several physical complaints and problems including hyperthyroidism, probably GERD, diabetes and hypertension. He has been taking his medications as much as he could. This is a right ambulatory male with fair hygiene. He is shaven and poorly combed. Apparently he stays in bed a lot. He does not show any psychomotor agitation or retardation. His speech is spontaneous relevant and goal-directed. His mood is euthymic and affect is appropriate to the thought content. As noted earlier he reported of auditory hallucinations at times. He denies suicide and homicide thoughts. His sensorium is fairly clear. A&P: Continue Zyprexa and discontinue Zoloft 25 mg a day since it is a very small dose to work as an antidepressant and since he is on Zyprexa which will help with his mood hallucinations and also to sleep better at night. Continue groups and other activities. He was encouraged to attend groups.
[2022-08-14 19:30] LABS: Glucose,Whole Blood 228 mg/dL (70-110)
[2022-08-14] MEDS: OLANZapine ODT 10 MG TAB PO SCH (20:09)
[2022-08-14] MEDS: ATORVASTATIN 40 MG TAB PO SCH (21:03)
[2022-08-14] MEDS: MELATONIN 5 MG TABLET PO SCH (21:04)
[2022-08-15 06:45] VITALS: BP 106/77; PULSE 110; TEMP 98.5
[2022-08-15] MEDS: methIMAzole 5 MG TAB PO SCH ×2 (08:39→08:57)
[2022-08-15] MEDS: DAPAGLIFLOZIN PROPANEDIOL 5 MG TABLET PO SCH ×2 (08:39→08:53)
[2022-08-15] MEDS: lisinopriL 20 MG TAB PO SCH ×2 (08:40→08:57)
[2022-08-15] MEDS: PANTOPRAZOLE 40 MG TABLET PO SCH ×2 (08:40→08:51)
[2022-08-15] MEDS: amLODIPine 5 MG TAB PO SCH ×2 (08:40→08:53)
[2022-08-15] MEDS: FENOFIBRATE 54 MG TAB PO SCH ×2 (08:40→08:54)
[2022-08-15] MEDS: clonazePAM 0.5 MG TAB PO SCH ×2 (08:40→08:53)
[2022-08-15] MEDS: TRIAMCINOLONE 0.1% CREAM 80 GM TUBE TOPICAL SCH (08:40)
[2022-08-15] MEDS: METOPROLOL TARTRATE 50 MG TAB PO SCH ×2 (08:40→08:53)
[2022-08-15] MEDS: NICOTINE 14MG/24HR PATCH TRANSDERM SCH (08:40)
--- NOTE | 2022-08-15 12:41 | P.DS ---
Providers Date of admission: 08/09/22 20:04 Expected date of discharge: 08/15/22 Attending physician: Dwight Enriquez MD Consults: 08/09/22 23:18 Consult Physician Routine Consulting Provider: [facility] Consult Reason/Comments: H&P Do you want consulting provider notified?: Yes Primary care physician: Farzana Canales - Discharge Diagnosis(es) (1) Autism spectrum disorder Current Visit: Yes Status: Chronic Priority: High Hospital Course: Patient had his psychiatric H&P done by Dr. Dwight Sy and general medical H&P done by Vanita Chin on 08/10/2022. After his psychiatric H&P he was started on Zyprexa sidedness 5 mg twice a day and Klonopin 0.5 mg twice a day for anxiety. Medications for his physical problems were continued as he was taking at home. He also received milieu therapy group therapy and counseling regarding coping skills. He did not participate much with the group activities. His Zyprexa was later on changed to only 10 mg at bedtime. With his medications his reported hallucinations resolved. He continued to report of difficulty in swallowing saying that his acid reflux disease makes him want it and it is hard for him even to swallow his pills. He was counseled and was advised to consult with ENT doctor about his swallowing difficulty. He agreed with this. He was later on started on Zoloft 25 mg a day for what is thought to be depression. However it was discontinued since the dose was too small and it takes weeks for it to work. He did not have any adverse effects from Zyprexa or Klonopin. He and his family agreed for him to come home and continue with outpatient treatment. Mental status examination: This is a white ambulatory male with adequate hygiene. He does not show any psychomotor agitation or retardation. His speech is spontaneous relevant and goal-directed. His mood is euthymic and affect is appropriate to the thought content. He denies current hallucinations delusional thinking suicide and homicide thoughts. His sensorium is clear. Assessment: Please see mental status examination under hospital course above Health Concerns: Multiple somatic symptoms including vomiting and not able to swallow medicine. He was advised to discuss this with his ENT doctor. He agreed. Pertinent Studies: None Procedures: None Patient Condition at Discharge: Stable Plan - Discharge Summary Discharge Rx Participant: No New Discharge Prescriptions: New Mag Hydrox/Al Hydrox/Simeth [Maalox] 30 ml PO Q4HR PRN ml PRN Reason: Gi Upset Magnesium Hydroxide [Milk of Magnesia Concentrate] 2,400 mg PO DAILY PRN ml PRN Reason: Constipation Famotidine [Pepcid] 40 mg PO HS 30 Days #30 tab Pantoprazole [Protonix] 40 mg PO AC-BID 30 Days #60 tab Docusate [Colace] 100 mg PO DAILY PRN cap PRN Reason: Constipation clonazePAM [KlonoPIN] 0.5 mg PO BID 30 Days #60 tab Melatonin 5 mg PO HS tab Calcium Carbonate [Tums] 500 mg PO QID PRN tab PRN Reason: Heartburn Acetaminophen Tab [Tylenol] 650 mg PO Q4HR PRN tab PRN Reason: Pain/Discomfort Ondansetron Odt [Zofran ODT] 4 mg PO Q8HR PRN tab PRN Reason: Nausea OLANZapine ODT [ZyPREXA Zydis] 10 mg PO HS 30 Days #30 tab Continue hydroCHLOROthiazide [Hydrodiuril] 25 mg PO DAILY 30 Days #30 tab Triamcinolone 0.025% Cream [Kenalog 0.025% Cream] 1 applic TOPICAL DAILY 30 Days #2 each Atorvastatin [Lipitor] 40 mg PO HS 30 Days #30 tab Metoprolol Tartrate [Lopressor] 50 mg PO BID 30 Days #60 tab Docusate [Colace] 100 mg PO DAILY PRN PRN Reason: Constipation Menthol [Biofreeze] 1 applic TOPICAL DAILY PRN PRN Reason: Pain Dicyclomine [Bentyl] 20 mg PO BID 30 Days #60 tab Empagliflozin [Jardiance] 10 mg PO DAILY 30 Days #30 tab lisinopriL 40 mg PO DAILY 30 Days #30 tab Fenofibrate [Lofibra] 54 mg PO DAILY 30 Days #30 tab amLODIPine [Norvasc] 5 mg PO DAILY 30 Days #30 tab methIMAzole [Tapazole] 5 mg PO DAILY 30 Days #30 tab Discontinued Pantoprazole [Protonix] 40 mg PO DAILY Famotidine 40 mg PO BID Discharge Medication List Docusate [Colace] 100 mg PO DAILY PRN 07/12/22 [History] Menthol [Biofreeze] 1 applic TOPICAL DAILY PRN 08/09/22 [History] Acetaminophen Tab [Tylenol] 650 mg PO Q4HR PRN tab 08/15/22 [Rx] Atorvastatin [Lipitor] 40 mg PO HS 30 Days #30 tab 08/15/22 [Rx] Calcium Carbonate [Tums] 500 mg PO QID PRN tab 08/15/22 [Rx] Dicyclomine [Bentyl] 20 mg PO BID 30 Days #60 tab 08/15/22 [Rx] Docusate [Colace] 100 mg PO DAILY PRN cap 08/15/22 [Rx] Empagliflozin [Jardiance] 10 mg PO DAILY 30 Days #30 tab 08/15/22 [Rx] Famotidine [Pepcid] 40 mg PO HS 30 Days #30 tab 08/15/22 [Rx] Fenofibrate [Lofibra] 54 mg PO DAILY 30 Days #30 tab 08/15/22 [Rx] Mag Hydrox/Al Hydrox/Simeth [Maalox] 30 ml PO Q4HR PRN ml 08/15/22 [Rx] Magnesium Hydroxide [Milk of Magnesia Concentrate] 2,400 mg PO DAILY PRN ml 08/15/22 [Rx] Melatonin 5 mg PO HS tab 08/15/22 [Rx] Metoprolol Tartrate [Lopressor] 50 mg PO BID 30 Days #60 tab 08/15/22 [Rx] OLANZapine ODT [ZyPREXA Zydis] 10 mg PO HS 30 Days #30 tab 08/15/22 [Rx] Ondansetron Odt [Zofran ODT] 4 mg PO Q8HR PRN tab 08/15/22 [Rx] Pantoprazole [Protonix] 40 mg PO AC-BID 30 Days #60 tab 08/15/22 [Rx] Triamcinolone 0.025% Cream [Kenalog 0.025% Cream] 1 applic TOPICAL DAILY 30 Days #2 each 08/15/22 [Rx] amLODIPine [Norvasc] 5 mg PO DAILY 30 Days #30 tab 08/15/22 [Rx] clonazePAM [KlonoPIN] 0.5 mg PO BID 30 Days #60 tab 08/15/22 [Rx] hydroCHLOROthiazide [Hydrodiuril] 25 mg PO DAILY 30 Days #30 tab 08/15/22 [Rx] lisinopriL 40 mg PO DAILY 30 Days #30 tab 08/15/22 [Rx] methIMAzole [Tapazole] 5 mg PO DAILY 30 Days #30 tab 08/15/22 [Rx] Follow up Appointment(s)/Referral(s): [facility] [Outside] - 08/18/22 10:30 am (08/18/22 @ 1030 with [facility] 08/30/22 @ [facility]) Farzana Canales MD [Primary Care Provider] - 1-2 days Activity/Diet/Wound Care/Special Instructions: Avoid the use of street drugs and alcohol. Take all medications as prescribed. When you are in need of refills on your medications, please contact your medical provider and/or outpatient psychiatrist to have this done. Please go to scheduled outpatient appointments for aftercare treatment. If symptoms return or become worse, call the crisis line at and/or go to the nearest emergency room for evaluation.
== END 2022-08-15 13:10 | disposition home or self-care (01) | DRG 885 ==
LOC: EC 14:47 → 3MHU 20:04
PROVIDERS: ADMIT Psychiatry & Neurology Psychiatry; ATTEND Psychiatry & Neurology Psychiatry
DX: F29 Unspecified psychosis not due to a substance or known physiological condition (principal); F84.0 Autistic disorder; K21.9 Gastro-esophageal reflux disease without esophagitis; R13.10 Dysphagia, unspecified; Z71.89 Other specified counseling; L40.9 Psoriasis, unspecified; R73.03 Prediabetes; Z86.14 Personal history of Methicillin resistant Staphylococcus aureus infection; M19.90 Unspecified osteoarthritis, unspecified site; K59.00 Constipation, unspecified; Z88.8 Allergy status to other drugs, medicaments and biological substances; Z79.899 Other long term (current) drug therapy; F45.9 Somatoform disorder, unspecified; G47.09 Other insomnia; I10 Essential (primary) hypertension; K21.00 Gastro-esophageal reflux disease with esophagitis, without bleeding; K44.9 Diaphragmatic hernia without obstruction or gangrene; Z79.84 Long term (current) use of oral hypoglycemic drugs
CPT/HCPCS: 80053; 82075; 83036; 84439; 84443; 85025; 87635; 99285

== ENCOUNTER 2022-08-18 15:46 | Emergency (ER) | payer MEDICARE, OTHER ==
--- NOTE | 2022-08-18 16:15 | ED ---
General Adult HPI - General Source: patient Mode of arrival: ambulatory Limitations: no limitations <Francisco Javier Nunez - Last Filed: 08/18/22 16:14> <Clint Meyer - Last Filed: 08/19/22 00:54> - General Chief complaint: Allergic Reaction Stated complaint: R arm shaky Time Seen by Provider: 08/18/22 16:01 - History of Present Illness Initial comments: Dictation was produced using [employer] dictation software. please excuse any grammatical, word or spelling errors. Chief Complaint: 42-year-old male with past rectal history of psychiatric illness presents emergency department for reported whole-body tremors History of Present Illness: Patient is a 42-year-old male he has past medical history of psychiatric illness. Patient was recently admitted to inpatient psychiatry earlier this week. He was under the care of psychiatry who changes around his medications. He discontinued his Klonopin and is invega and was started on Zyprexa. Patient states that since taking the Zyprexa he's been having whole-body tremors. Patient feels like it's deep in his bones. While being interviewed at the bedside states that it's in his right inner arm. Patient is told to discontinue Zyprexa. He contacted his primary care doctor in was instructed to come to the emergency department for fear of ALLERGIC reaction. Patient has no shortness of breath. No abdominal pain. No lightheadedness. Denies any rash. The ROS documented in this emergency department record has been reviewed and confirmed by me. Those systems with pertinent positive or negative responses have been documented in the HPI. All other systems are other negative and/or noncontributory. (Francisco Javier Nunez) - Related Data Home Medications Medication Instructions Recorded Confirmed Menthol [Biofreeze] 1 applic TOPICAL DAILY PRN 08/09/22 08/18/22 Previous Rx's Medication Instructions Recorded Acetaminophen Tab [Tylenol] 650 mg PO Q4HR PRN tab 08/15/22 Atorvastatin [Lipitor] 40 mg PO HS 30 Days #30 tab 08/15/22 Calcium Carbonate [Tums] 500 mg PO QID PRN tab 08/15/22 Dicyclomine [Bentyl] 20 mg PO BID 30 Days #60 tab 08/15/22 Docusate [Colace] 100 mg PO DAILY PRN cap 08/15/22 Empagliflozin [Jardiance] 10 mg PO DAILY 30 Days #30 tab 08/15/22 Famotidine [Pepcid] 40 mg PO HS 30 Days #30 tab 08/15/22 Fenofibrate [Lofibra] 54 mg PO DAILY 30 Days #30 tab 08/15/22 Mag Hydrox/Al Hydrox/Simeth 30 ml PO Q4HR PRN ml 08/15/22 [Maalox] Magnesium Hydroxide [Milk of 2,400 mg PO DAILY PRN ml 08/15/22 Magnesia Concentrate] Melatonin 5 mg PO HS tab 08/15/22 Metoprolol Tartrate [Lopressor] 50 mg PO BID 30 Days #60 tab 08/15/22 Ondansetron Odt [Zofran ODT] 4 mg PO Q8HR PRN tab 08/15/22 Pantoprazole [Protonix] 40 mg PO AC-BID 30 Days #60 tab 08/15/22 Triamcinolone 0.025% Cream 1 applic TOPICAL DAILY 30 Days #2 08/15/22 [Kenalog 0.025% Cream] each amLODIPine [Norvasc] 5 mg PO DAILY 30 Days #30 tab 08/15/22 hydroCHLOROthiazide [Hydrodiuril] 25 mg PO DAILY 30 Days #30 tab 08/15/22 lisinopriL 40 mg PO DAILY 30 Days #30 tab 08/15/22 methIMAzole [Tapazole] 5 mg PO DAILY 30 Days #30 tab 08/15/22 clonazePAM [KlonoPIN] 0.5 mg PO BID 3 Days #6 tablet 08/19/22 Allergies Allergy/AdvReac Type Severity Reaction Status Date / Time aripiprazole [From Abilify] AdvReac erection Verified 08/18/22 19:06 that lasted over 24 hrs escitalopram [From Lexapro] AdvReac erection Verified 08/18/22 19:06 that lasted over 24 hrs hydroxyzine AdvReac 'bothers Verified 08/18/22 19:06 eyes" Review of Systems ROS Other: All systems not noted in ROS Statement are negative. <Francisco Javier Nunez - Last Filed: 08/18/22 16:14> ROS Other: All systems not noted in ROS Statement are negative. <Clint Meyer - Last Filed: 08/19/22 00:54> ROS Statement: Those systems with pertinent positive or pertinent negative responses have been documented in the HPI. Past Medical History Past Medical History: GERD/Reflux, Hypertension, Osteoarthritis (OA), Skin Disorder Additional Past Medical History / Comment(s): blood in stool, psoriasis, dermatitis, "prediabetic"-diet control, anemia, sore left ankle-limps, dehydration, dysphagia, frequent vomiting, CYSTS IN ANKLES History of Any Multi-Drug Resistant Organisms: MRSA Date of last positivie culture/infection: 11/20/2012 MDRO Source:: back Past Surgical History: Orthopedic Surgery Additional Past Surgical History / Comment(s): COLONOSCOPY/EGD. RT HAND SX. SX FOR PROLONGED ERECTION. autism Past Anesthesia/Blood Transfusion Reactions: Motion Sickness Past Psychological History: Anxiety, Depression Smoking Status: Never smoker Past Alcohol Use History: None Reported Past Drug Use History: None Reported - Past Family History Brother(s) Family Medical History: Cancer <Francisco Javier Nunez - Last Filed: 08/18/22 16:14> General Exam Limitations: no limitations <Francisco Javier Nunez - Last Filed: 08/18/22 16:14> - General Exam Comments Initial Comments: PHYSICAL EXAM: General Impression: Alert and oriented x3, not in acute distress HEENT: Normocephalic atraumatic, extra-ocular movements intact, pupils equal and reactive to light bilaterally, mucous membranes moist. Cardiovascular: Heart regular rate and rhythm Chest: Able to complete full sentences, no retractions, no tachypnea Abdomen: abdomen soft, non-tender, non-distended, no organomegaly Musculoskeletal: Pulses present and equal in all extremities, no peripheral edema Motor: no focal deficits noted Neurological: CN II-XII grossly intact, no focal motor or sensory deficits noted Skin: Intact with no visualized rashes Psych: Normal affect and mood (Francisco Javier Nunez) Course Vital Signs 08/18/22 08/18/22 15:57 22:00 Temperature 98 F 98.2 F Pulse Rate 107 H 112 H Respiratory 20 18 Rate Blood Pressure 168/100 170/82 O2 Sat by Pulse 96 99 Oximetry Disposition <Francisco Javier Nunez - Last Filed: 08/18/22 16:14> Is patient prescribed a controlled substance at d/c from ED?: No <Clint Meyer - Last Filed: 08/19/22 00:54> Clinical Impression: Anxiety, Adverse drug reaction Disposition: HOME SELF-CARE Condition: Good Instructions (If sedation given, give patient instructions): Anxiety (ED) Prescriptions: clonazePAM [KlonoPIN] 0.5 mg PO BID 3 Days #6 tablet Referrals: Farzana Canales MD [Primary Care Provider] - 1-2 days
[2022-08-19] MEDS ORDERED: PANTOPRAZOLE 40 MG TABLET PO STA (00:29)
[2022-08-19] MEDS ORDERED: clonazePAM 0.5 MG TAB PO STA (01:08)
[2022-08-19 01:21] VITALS: BP 149/81; PULSE 98; RESP 16; TEMP 98.6
== END 2022-08-19 01:29 | disposition home or self-care (01) ==
LOC: EC 15:46
DX: F41.9 Anxiety disorder, unspecified (principal); T43.595A Adverse effect of other antipsychotics and neuroleptics, initial encounter; I10 Essential (primary) hypertension; M19.90 Unspecified osteoarthritis, unspecified site; F32.A Depression, unspecified; Z88.8 Allergy status to other drugs, medicaments and biological substances; Z79.899 Other long term (current) drug therapy
CPT/HCPCS: 82075; 99283

== ENCOUNTER → 2022-09-08 | Outpatient (CLI) | payer MEDICARE, OTHER ==
--- NOTE | 2022-09-08 17:17 | CT ---
EXAMINATION TYPE: CT chest wo con DATE OF EXAM: 09/08/2022 COMPARISON: Radiograph 05/18/2022 HISTORY: 42-year-old male E78.2, mixed hyperlipidemia TECHNIQUE: Contiguous axial scanning of the chest without IV contrast. Coronal and sagittal reconstru ctions performed. CT DLP: 509.50 mGycm Automated exposure control for dose reduction was used. FINDINGS: Heart upper limits of normal in size without pericardial effusion. Possible aneurysm aortic root at 4.2 cm. The presence of cardiac motion limits assessment. Convention al arch vessels branching anatomy. No thoracic lymphadenopathy by CT size criteria. Some subtle hazy densities in the mid and lower lungs, suspected mosaic attenuation. No consolidation or pleural effusion is seen. Central airways are clear. Visualized upper abdomen shows diminished attenuation of the hepatic parenchyma suggesting at least m ild fatty infiltration. Hilar splenule. Probably ingested debris within the stomach. Bones: Anterior endplate spondylosis mid and lower thoracic spine fatty matrix hemangioma within the T2 vertebral body. IMPRESSION: 1. HAZY DENSITIES IN THE MID AND LOWER LUNGS COULD REPRESENT GENERALIZED ATELECTASIS FROM LOW LUNG VO LUMES. MOSAIC ATTENUATION FROM SMALL AIRWAYS DISEASE IS THE ALTERNATIVE CONSIDERATION. 2. POSSIBLE 4.2 CM ANEURYSM OF THE AORTIC ROOT. CARDIAC MOTION LIMITS DEFINITIVE ASSESSMENT. 3. AT LEAST MILD UNDERLYING FATTY INFILTRATION OF THE LIVER.
== END | disposition home or self-care (01) ==
LOC: RADCTMAIN 14:03
PROVIDERS: ATTEND Family Medicine
DX: E78.2 Mixed hyperlipidemia (principal); J98.4 Other disorders of lung; K76.0 Fatty (change of) liver, not elsewhere classified
CPT/HCPCS: 71250

== ENCOUNTER 2022-10-18 05:40 | Day surgery (SDC) | payer MEDICARE, OTHER ==
[2022-10-18] MEDS ORDERED: LIDOCAINE 1% (10MG/ML) FOR IV START INTRADERMA PRN (06:27)
[2022-10-18] MEDS ORDERED: LACTATED RINGERS 1,000 ML IV SCH (06:27)
[2022-10-18 06:50] VITALS: TEMP 96.8
[2022-10-18 07:03] LABS: Glucose,Whole Blood 120 mg/dL (70-110)
[2022-10-18] MEDS ORDERED: PROPOFOL 10 MG/ML 20 ML VIAL IV ONE (07:03)
--- NOTE | 2022-10-18 07:22 | P.PCN ---
Date of Procedure: 10/18/22 Procedure(s) Performed: BRIEF HISTORY: Patient is a 42-year-old pleasant white male scheduled for an elective colonoscopy as a part of evaluation of intermittent rectal bleeding for the last 2 months duration. PROCEDURE PERFORMED: Colonoscopy. PREOPERATIVE DIAGNOSIS: Intermittent rectal bleeding. IV sedation per Anesthesia. PROCEDURE: After informed consent was obtained, the patient, was brought into the endoscopy unit. IV sedation was administered by Anesthesia under continuous monitoring. Digital rectal examination was normal. Initially the Olympus CF-160 flexible video colonoscope was then inserted in the rectum, gradually advanced into the cecum without any difficulty. Careful examination was performed as the scope was gradually being withdrawn. Ileocecal valve and the appendiceal orifice were visualized and appeared normal. Prep was fair.. Mucosa of the cecum, ascending colon, transverse colon, descending colon, sigmoid colon, and rectum appeared normal. Retroflexion was performed in the rectum and monitor hemorrhoids were seen. The patient tolerated the procedure well. IMPRESSION: Normal-appearing colon from rectum to cecum with no evidence of colorectal neoplasia. Small internal hemorrhoids. RECOMMENDATIONS: Findings of this examination were discussed with the patient as well as his family. He was advised to be a high-fiber diet and take fiber supplements a regular basis as well as avoid straining and constipation. Recommend repeat screening colonoscopy in 10 years..
[2022-10-18 07:28] VITALS: RESP 14
[2022-10-18 07:40] VITALS: BP 105/70; PULSE 68
== END 2022-10-18 08:14 | disposition home or self-care (01) ==
LOC: ORWHC2ENDO 05:40
PROVIDERS: ATTEND Internal Medicine Gastroenterology
DX: K64.8 Other hemorrhoids (principal); I10 Essential (primary) hypertension; E78.5 Hyperlipidemia, unspecified; E11.9 Type 2 diabetes mellitus without complications; E07.9 Disorder of thyroid, unspecified; F84.0 Autistic disorder; F32.A Depression, unspecified; Z79.1 Long term (current) use of non-steroidal anti-inflammatories (NSAID); Z79.899 Other long term (current) drug therapy; Z79.84 Long term (current) use of oral hypoglycemic drugs; Z88.5 Allergy status to narcotic agent; Z88.8 Allergy status to other drugs, medicaments and biological substances
CPT/HCPCS: 45378; J2704

== ENCOUNTER 2023-01-09 16:32 | Emergency (ER) | payer MEDICARE, OTHER ==
[2023-01-09 17:15] VITALS: BP 149/97; PULSE 95; RESP 18; TEMP 97.8
[2023-01-09 18:13] LABS: Appearance,Urine Clear (Clear); Bilirubin,Urine Negative (Negative); Blood,Urine Negative (Negative); Color,Urine Colorless; Glucose,Urine (UA) Negative (Negative); Ketones,Urine Negative (Negative); Leukocyte Esterase,Urine Negative (Negative); Nitrite,Urine Negative (Negative); PH, Urine 5.5 (5.0-8.0); Protein,Urine Trace (Negative); Specific Gravity,Urine 1.017 (1.001-1.035); Urobilinogen,Urine <2.0 mg/dL (<2.0)
[2023-01-09 18:15] LABS: Basophils # (A) 0.1 k/uL (0-0.2); Basophils % (A) 1 %; Eosinophils # (A) 1.1 k/uL (0-0.7); Eosinophils % (A) 11 %; HCT 47.6 % (39.0-53.0); HGB 15.2 gm/dL (13.0-17.5); Lymphocytes # (A) 1.9 k/uL (1.0-4.8); Lymphocytes % (A) 19 %; MCH 27.2 pg (25.0-35.0); MCHC 31.9 g/dL (31.0-37.0); MCV 85.3 fL (80.0-100.0); Mean Platelet Volume 8.2; Monocytes # (A) 0.4 k/uL (0-1.0); Monocytes % (A) 4 %; Neutrophils # (A) 6.5 k/uL (1.3-7.7); Neutrophils % (A) 65 %; Platelet Count 278 k/uL (150-450); RBC 5.59 m/uL (4.30-5.90)
[2023-01-09 18:23] LABS: ALT 53 U/L (4-49); AST 41 U/L (17-59); African American GFR (CKD) >90 (>60 ml/min/1.73 sqM); Albumin 4.2 g/dL (3.5-5.0); Alkaline Phosphatase 78 U/L (38-126); Amylase 67 U/L (30-110); Anion Gap 6 mmol/L; Blood Urea Nitrogen 15 mg/dL (9-20); Calcium 9.1 mg/dL (8.4-10.2); Carbon Dioxide 28 mmol/L (22-30); Chloride 105 mmol/L (98-107); Glucose 112 mg/dL (74-99); Lipase 401 U/L (23-300); Non-African American GFR(CKD) >90 (>60 ml/min/1.73 sqM); Potassium 4.2 mmol/L (3.5-5.1); Sodium 139 mmol/L (137-145); Total Bilirubin 0.6 mg/dL (0.2-1.3); Total Protein 6.9 g/dL (6.3-8.2)
[2023-01-09] MEDS ORDERED: SODIUM CHLORIDE 0.9% 1,000 ML IV STA (19:51)
[2023-01-09] MEDS ORDERED: METOPROLOL TARTRATE 50 MG TAB PO STA (20:01)
--- NOTE | 2023-01-09 20:20 | ED ---
Abdominal Pain HPI - General Chief Complaint: Abdominal Pain Stated Complaint: High blood pressure/fever Time Seen by Provider: 01/09/23 17:15 Source: patient Mode of arrival: ambulatory - History of Present Illness Initial Comments: 42-year-old male with past medical history of diabetes, hypertension, hyperlipidemia presents to the emergency department under the direction of his primary care. He states that he was at [facility] earlier today. States he felt hot and had several episodes of vomiting. He was attended to by some of the nurses who found that his blood pressure was extremely high. They recommended that he see his primary care doctor. He was sent over to Dr. Solomon's office. Because of the symptoms they recommended that he be evaluated in the emergency departm ent. Patient has been in the waiting room for some time. States that he was able to eat a sandwich. He no longer feels nauseated. Continues to have high blood pressure however he is supposed to be on 4 blood pressure medications and is unsure of which medications he took this morning. He denies chest pain or shortness of breath. No headache or visual changes. No sick contacts with similar symptoms. No other alleviating, precipitating or modifying factors - Related Data Home Medications Medication Instructions Recorded Confirmed Triamcinolone 0.025% Cream 1 applic TOPICAL DAILY PRN 10/16/22 10/18/22 [Kenalog 0.025% Cream] Previous Rx's Medication Instructions Recorded Acetaminophen Tab [Tylenol] 650 mg PO Q4HR PRN tab 08/15/22 Atorvastatin [Lipitor] 40 mg PO HS 30 Days #30 tab 08/15/22 Dicyclomine [Bentyl] 20 mg PO BID 30 Days #60 tab 08/15/22 Docusate [Colace] 100 mg PO DAILY PRN cap 08/15/22 Empagliflozin [Jardiance] 10 mg PO DAILY 30 Days #30 tab 08/15/22 Famotidine [Pepcid] 40 mg PO HS 30 Days #30 tab 08/15/22 Fenofibrate [Lofibra] 54 mg PO DAILY 30 Days #30 tab 08/15/22 Melatonin 5 mg PO HS tab 08/15/22 Metoprolol Tartrate [Lopressor] 50 mg PO BID 30 Days #60 tab 08/15/22 Ondansetron Odt [Zofran ODT] 4 mg PO Q8HR PRN tab 08/15/22 Pantoprazole [Protonix] 40 mg PO AC-BID 30 Days #60 tab 08/15/22 amLODIPine [Norvasc] 5 mg PO DAILY 30 Days #30 tab 08/15/22 hydroCHLOROthiazide [Hydrodiuril] 25 mg PO DAILY 30 Days #30 tab 08/15/22 lisinopriL 40 mg PO DAILY 30 Days #30 tab 08/15/22 methIMAzole [Tapazole] 5 mg PO DAILY 30 Days #30 tab 08/15/22 Allergies Allergy/AdvReac Type Severity Reaction Status Date / Time aripiprazole [From Abilify] AdvReac erection Verified 01/09/23 17:14 that lasted over 24 hrs clonazepam AdvReac tremors Verified 01/09/23 17:14 escitalopram [From Lexapro] AdvReac erection Verified 01/09/23 17:14 that lasted over 24 hrs hydroxyzine AdvReac 'bothers Verified 01/09/23 17:14 eyes" olanzapine AdvReac tremors Verified 01/09/23 17:14 and increased erection time. Review of Systems ROS Statement: Those systems with pertinent positive or pertinent negative responses have been documented in the HPI. ROS Other: All systems not noted in ROS Statement are negative. 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 with Dr Tierra Bonilla. recent removal of tooth, 1 of 3, admitted overnight for for nausea and dizziness afterward,. covid 04/2021 History of Any Multi-Drug Resistant Organisms: MRSA Date of last positivie culture/infection: 11/20/2012 MDRO Source:: back Past Surgical History: Orthopedic Surgery Additional Past Surgical History / Comment(s): COLONOSCOPY/EGD, surgery for u ndescended testicles. RT HAND SX. procedure for prolonged erection. Dr Shah Past Anesthesia/Blood Transfusion Reactions: Motion Sickness Additional Past Anesthesia/Blood Transfusion Reaction / Comment(s): faint and dizzy after hand surgery Past Psychological History: Anxiety, Depression Smoking Status: Never smoker Past Alcohol Use History: None Reported Past Drug Use History: None Reported - Past Family History Brother(s) Family Medical History: Cancer Mother Family Medical History: Coronary Artery Disease (CAD) Additional Family Medical History / Comment(s): kidney failure Father Family Medical History: Coronary Artery Disease (CAD) General Exam General appearance: alert, in no apparent distress Head exam: Present: atraumatic, normocephalic, normal inspection Eye exam: Present: normal appearance, PERRL, EOMI. Absent: scleral icterus, conjunctival injection, periorbital swelling ENT exam: Present: normal exam, mucous membranes moist Neck exam: Present: normal inspection. Absent: tenderness, meningismus, lymphadenopathy Respiratory exam: Present: normal lung sounds bilaterally. Absent: respiratory distress, wheezes, rales, rhonchi, stridor Cardiovascular Exam: Present: regular rate, normal rhythm, normal heart sounds. Absent: systolic murmur, diastolic murmur, rubs, gallop, clicks GI/Abdominal exam: Present: soft, normal bowel sounds. Absent: distended, tenderness, guarding, rebound, rigid Extremities exam: Present: normal inspection, full ROM, normal capillary refill. Absent: tenderness, pedal edema, joint swelling, calf tenderness Back exam: Present: normal inspection Neurological exam: Present: alert, oriented X3, CN II-XII intact Psychiatric exam: Present: normal affect, normal mood Skin exam: Present: warm, dry, intact, normal color. Absent: rash Course Vital Signs 01/09/23 17:10 Temperature 97.8 F Pulse Rate 95 Respiratory 18 Rate Blood Pressure 149/97 O2 Sat by Pulse 98 Oximetry Medical Decision Making - Medical Decision Making Was pt. sent in by a medical professional or institution (, PA, ELECTRIC CRANE OPERATOR, urgent care, hospital, or group home...) When possible be specific @ -Patient was sent in from Dr. Solomon's office Did you speak to anyone other than the patient for history (EMS, parent, family, police, friend...)? What history was obtained from this source @ -No Did you review nursing and triage notes (agree or disagree)? Why? @ -I reviewed and agree with nursing and triage notes Were old charts reviewed (outside hosp., previous admission, EMS record, old EKG, old radiological studies, urgent care reports/EKG's, group home records)? Report findings @ -No old charts were reviewed Differential Diagnosis (chest pain, altered mental status, abdominal pain women, abdominal pain men, vaginal bleeding, weakness, fever, dyspnea, syncope, headache, dizziness, GI bleed, back pain, seizure, CVA, palpatations, mental health, musculoskeletal)? @ - Appendicitis, cholecystitis, diverticulosis, ischemic bowel, pancreatitis, hepatitis, UTI, gastroenteritis, AAA, incarcerated hernia, bowel obstruction, constipation, inflammatory bowel, hepatitis, peptic ulcer disease, splenic infarction, perforated viscus, testicular torsion, this is not meant to be an all-inclusive list EKG interpreted by me (3pts min.). @ -Not completed X-rays interpreted by me (1pt min.). @ -None done CT interpreted by me (1pt min.). @ -None done U/S interpreted by me (1pt. min.). @ -None done What testing was considered but not performed or refused? (CT, X-rays, U/S, labs)? Why? @ -Abdominal imaging was considered however the patient has no abdominal pain What meds were considered but not given or refused? Why? @ -None Did you discuss the management of the patient with other professionals (professionals i.e. , PA, ELECTRIC CRANE OPERATOR, lab, RT, psych nurse, social sciences instructor, campaign consultant, te acher, transportation officer, case planner)? Give summary @ -No Was smoking cessation discussed for >3mins.? @ -No Was critical care preformed (if so, how long)? @ -No Were there social determinants of health that impacted care today? How? (Homelessness, low income, unemployed, alcoholism, drug addiction, transportation, low edu. Level, literacy, decrease access to med. care, half-way, rehab)? @ -No Was there de-escalation of care discussed even if they declined (Discuss DNR or withdrawal of care, Hospice)? DNR status @ -No What co-morbidities impacted this encounter? (DM, HTN, Smoking, COPD, CAD, Cancer, CVA, ARF, Chemo, Hep., AIDS, mental health diagnosis, sleep apnea, morbid obesity)? @ -Hypertension Patient admitted / discharged? Hospital course, mention meds given and route, prescriptions, significant lab abnormalities, going to OR and other pertinent info. @ -upon arrival patient was placed into hallway 20. Thorough history and physical exam was performed. Laboratory studies had been conducted. Patient does have improvement in his blood pressure without any intervention. He is due for his nighttimes meds. I did order his Lopressor. Patient states he has been able to eat a sandwich. He normally feels nauseated. Patient will be dis charged home at this time and instructed to follow-up with his primary care doctor. Continue taking his blood pressure medications as directed. Return for any new or worsening symptoms. Patient was agreeable to this plan and was discharged in stable condition Undiagnosed new problem with uncertain prognosis? @ -No DugTherapy requiring intensive monitoring for toxicity (Heparin, Nitro, Insulin, Cardizem)? @ -No Wreany procedures done? @ -No Dagosis/symptom? @ - acute nausea and vomiting, accelerated hypertension Acute, or Chronic, or Acute on Chronic? @ -acute Uncomplicated (without systemic symptoms) or Complicated (systemic symptoms)? @ -complicated Side effects of treatment? @ -No Eacrbation, Progression, or Severe Exacerbation? @ -No Pse a threat to life or bodily function? How? (Chest pain, USA, MA, pneumonia, PE, COPD, DKA, ARF, appy, cholecystitis, CVA, Diverticulitis, Homicidal, Suicidal, threat to staff... and all critical care pts) @ -No - Lab Data Result diagrams: 01/09/23 17:57 01/09/23 17:57 Lab Results 01/09/23 01/09/23 01/09/23 Range/Units 17:57 17:57 17:57 WBC 10.0 (3.8-10.6) k/uL RBC 5.59 (4.30-5.90) m/uL Hgb 15.2 (13.0-17.5) gm/dL Hct 47.6 (39.0-53.0) % MCV 85.3 (80.0-100.0) fL MCH 27.2 (25.0-35.0) pg MCHC 31.9 (31.0-37.0) g/dL RDW 14.0 (11.5-15.5) % Plt Count 278 (150-450) k/uL MPV 8.2 Neutrophils % 65 % Lymphocytes % 19 % Monocytes % 4 % Eosinophils % 11 % Basophils % 1 % Neutrophils # 6.5 (1.3-7.7) k/uL Lymphocytes # 1.9 (1.0-4.8) k/uL Monocytes # 0.4 (0-1.0) k/uL Eosinophils # 1.1 H (0-0.7) k/uL Basophils # 0.1 (0-0.2) k/uL Sodium 139 (137-145) mmol/L Potassium 4.2 (3.5-5.1) mmol/L Chloride 105 (98-107) mmol/L Carbon Dioxide 28 (22-30) mmol/L Anion Gap 6 mmol/L BUN 15 (9-20) mg/dL Creatinine 0.95 (0.66-1.25) mg/dL Est GFR (CKD-EPI)AfAm >90 (>60 ml/min/1.73 sqM) Est GFR (CKD-EPI)NonAf >90 (>60 ml/min/1.73 sqM) Glucose 112 H (74-99) mg/dL Plasma Lactic Acid Jeyson (0.7-2.0) mmol/L Calcium 9.1 (8.4-10.2) mg/dL Total Bilirubin 0.6 (0.2-1.3) mg/dL AST 41 (17-59) U/L ALT 53 H (4-49) U/L Alkaline Phosphatase 78 (38-126) U/L Total Protein 6.9 (6.3-8.2) g/dL Albumin 4.2 (3.5-5.0) g/dL Amylase 67 (30-110) U/L Lipase 401 H (23-300) U/L Urine Color Colorless Urine Appearance Clear (Clear) Urine pH 5.5 (5.0-8.0) Ur Specific [place] 1.017 (1.001-1.035) Urine Protein Trace H (Negative) Urine Glucose (UA) Negative (Negative) Urine Ketones Negative (Negative) Urine Blood Negative (Negative) Urine Nitrite Negative (Negative) Urine Bilirubin Negative (Negative) Urine Urobilinogen <2.0 (<2.0) mg/dL Ur Leukocyte Esterase Negative (Negative) 01/09/23 Range/Units 17:57 WBC (3.8-10.6) k/uL RBC (4.30-5.90) m/uL Hgb (13.0-17.5) gm/dL Hct (39.0-53.0) % MCV (80.0-100.0) fL MCH (25.0-35.0) pg MCHC (31.0-37.0) g/dL RDW (11.5-15.5) % Plt Count (150-450) k/uL MPV Neutrophils % % Lymphocytes % % Monocytes % % Eosinophils % % Basophils % % Neutrophils # (1.3-7.7) k/uL Lymphocytes # (1.0-4.8) k/uL Monocytes # (0-1.0) k/uL Eosinophils # (0-0.7) k/uL Basophils # (0-0.2) k/uL Sodium (137-145) mmol/L Potassium (3.5-5.1) mmol/L Chloride (98-107) mmol/L Carbon Dioxide (22-30) mmol/L Anion Gap mmol/L BUN (9-20) mg/dL Creatinine (0.66-1.25) mg/dL Est GFR (CKD-EPI)AfAm (>60 ml/min/1.73 sqM) Est GFR (CKD-EPI)NonAf (>60 ml/min/1.73 sqM) Glucose (74-99) mg/dL Plasma Lactic Acid Jeyson 1.1 (0.7-2.0) mmol/L Calcium (8.4-10.2) mg/dL Total Bilirubin (0.2-1.3) mg/dL AST (17-59) U/L ALT (4-49) U/L Alkaline Phosphatase (38-126) U/L Total Protein (6.3-8.2) g/dL Albumin (3.5-5.0) g/dL Amylase (30-110) U/L Lipase (23-300) U/L Urine Color Urine Appearance (Clear) Urine pH (5.0-8.0) Ur Specific [place] (1.001-1.035) Urine Protein (Negative) Urine Glucose (UA) (Negative) Urine Ketones (Negative) Urine Blood (Negative) Urine Nitrite (Negative) Urine Bilirubin (Negative) Urine Urobilinogen (<2.0) mg/dL Ur Leukocyte Esterase (Negative) Disposition Clinical Impression: Hypertension, Nausea & vomiting Disposition: HOME SELF-CARE Condition: Stable Instructions (If sedation given, give patient instructions): Chronic Hypertension (DC) Additional Instructions: Please continue taking your blood pressure medications as directed. Follow up with your primary care doctor and return for any new or worsening symptoms Is patient prescribed a controlled substance at d/c from ED?: No Referrals: Farzana Canales MD [Primary Care Provider] - 1-2 days Time of Disposition: 20:20
== END 2023-01-09 20:21 | disposition home or self-care (01) ==
LOC: EC 16:32
DX: I10 Essential (primary) hypertension (principal); R11.2 Nausea with vomiting, unspecified; M19.90 Unspecified osteoarthritis, unspecified site; E11.9 Type 2 diabetes mellitus without complications; Z86.59 Personal history of other mental and behavioral disorders; Z79.1 Long term (current) use of non-steroidal anti-inflammatories (NSAID); Z88.1 Allergy status to other antibiotic agents; Z88.6 Allergy status to analgesic agent; Z88.8 Allergy status to other drugs, medicaments and biological substances; Z86.16 Personal history of COVID-19
CPT/HCPCS: 36415; 80053; 81003; 82150; 83605; 83690; 85025; 96360; 99284

== ENCOUNTER → 2023-03-05 | Outpatient (CLI) | payer MEDICARE, OTHER ==
[2023-03-05 10:27] LABS: African American GFR (CKD) >90 (>60 ml/min/1.73 sqM); Blood Urea Nitrogen 11 mg/dL (9-20); Non-African American GFR(CKD) >90 (>60 ml/min/1.73 sqM)
--- NOTE | 2023-03-05 10:55 | CT ---
EXAMINATION TYPE: CT chest w con CT DLP: 486.3 mGycm, Automated exposure control for dose reduction was used. DATE OF EXAM: 03/05/2023 10:46 AM COMPARISON: CT chest 05/11/2022 CLINICAL INDICATION:Male, 43 years old with history of R91.8 abn findings; PHH, abnormal lung finding TECHNIQUE: Multiple axial images were obtained through the chest following the administration of 100 cc of Isovue 300. . Coronal and sagittal reformats reviewed. FINDINGS: LUNGS/ PLEURA: No pleural effusion, pneumothorax, focal consolidation. No suspicious pulmonary nodule or mass. Hazy densities within the mid and lower lungs are not well visualized on today's exam. AIRWAY: Patent and unremarkable.. HEART: Upper limits for normal size. No pericardial effusion. MEDIASTINUM: No gross evidence of adenopathy. VASCULATURE: Stable aortic root aneurysmal dilatation of 4.1 cm conference to 4.2 cm. Ascending thor acic aorta measures up to 2.7 cm. Descending thoracic aorta measures 0.3 cm. MUSCULOSKELETAL: No acute osseous abnormalities SOFT TISSUES/LYMPH NODES: Unremarkable. LOWER NECK: No significant findings. UPPER ABDOMEN: Diffuse low-attenuation to the liver parenchyma. IMPRESSION: 1. No acute thoracic process. Previously seen hazy densities within the mid and lower lungs do not pe rsist. 2. Stable aortic root aneurysmal dilatation of 4.1 cm. 3. Hepatic steatosis.
== END | disposition home or self-care (01) ==
LOC: RADCTMAIN 09:37
PROVIDERS: ATTEND Internal Medicine Critical Care Medicine
DX: R91.8 Other nonspecific abnormal finding of lung field (principal); K76.0 Fatty (change of) liver, not elsewhere classified
CPT/HCPCS: 82565; 84520; 71260; 36415; Q9967

== ENCOUNTER 2023-04-25 05:43 | Emergency (ER) | payer MEDICARE, OTHER ==
[2023-04-25 06:08] VITALS: RESP 20
[2023-04-25] MEDS ORDERED: ONDANSETRON ODT 4 MG TAB PO STA (07:48)
--- NOTE | 2023-04-25 07:57 | ED ---
General Adult HPI - General Chief complaint: Allergic Reaction Stated complaint: Mental Health Time Seen by Provider: 04/25/23 06:23 Source: patient, RN notes reviewed Mode of arrival: EMS Limitations: no limitations - History of Present Illness Initial comments: Patient is a 43-year-old male presented to the incident today with chief complaint of possible adverse reaction to his medication. Patient does admit that he takes brain. He took one dose yesterday. She started to have hallucinations. Patient does admit that cigarettes medication the past proximate months ago and had a similar problem. Patient does admit that symptoms somewhat improved but 7 more upset stomach at this time didn't. He does admit that he felt nauseous. Small amount of vomiting.Patient denies any recent fever, chills, shortness of breath, chest pain, back pain, numbness or tingling, headaches or visual changes, or any other complaints. - Related Data Home Medications Medication Instructions Recorded Confirmed Triamcinolone 0.025% Cream 1 applic TOPICAL DAILY PRN 10/16/22 10/18/22 [Kenalog 0.025% Cream] Previous Rx's Medication Instructions Recorded Acetaminophen Tab [Tylenol] 650 mg PO Q4HR PRN tab 08/15/22 Atorvastatin [Lipitor] 40 mg PO HS 30 Days #30 tab 08/15/22 Dicyclomine [Bentyl] 20 mg PO BID 30 Days #60 tab 08/15/22 Docusate [Colace] 100 mg PO DAILY PRN cap 08/15/22 Empagliflozin [Jardiance] 10 mg PO DAILY 30 Days #30 tab 08/15/22 Famotidine [Pepcid] 40 mg PO HS 30 Days #30 tab 08/15/22 Fenofibrate [Lofibra] 54 mg PO DAILY 30 Days #30 tab 08/15/22 Melatonin 5 mg PO HS tab 08/15/22 Metoprolol Tartrate [Lopressor] 50 mg PO BID 30 Days #60 tab 08/15/22 Ondansetron Odt [Zofran ODT] 4 mg PO Q8HR PRN tab 08/15/22 Pantoprazole [Protonix] 40 mg PO AC-BID 30 Days #60 tab 08/15/22 amLODIPine [Norvasc] 5 mg PO DAILY 30 Days #30 tab 08/15/22 hydroCHLOROthiazide [Hydrodiuril] 25 mg PO DAILY 30 Days #30 tab 08/15/22 lisinopriL 40 mg PO DAILY 30 Days #30 tab 08/15/22 methIMAzole [Tapazole] 5 mg PO DAILY 30 Days #30 tab 08/15/22 Ondansetron Odt [Zofran ODT] 4 mg PO Q8HR PRN #20 tab 04/25/23 Allergies Allergy/AdvReac Type Severity Reaction Status Date / Time aripiprazole [From Abilify] AdvReac erection Verified 04/25/23 05:54 that lasted over 24 hrs clonazepam AdvReac tremors Verified 04/25/23 05:54 escitalopram [From Lexapro] AdvReac erection Verified 04/25/23 05:54 that lasted over 24 hrs hydroxyzine AdvReac 'bothers Verified 04/25/23 05:54 eyes" olanzapine AdvReac tremors Verified 04/25/23 05:54 and increased erection time. Review of Systems ROS Statement: Those systems with pertinent positive or pertinent negative responses have been documented in the HPI. ROS Other: All systems not noted in ROS Statement are negative. 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 with Dr Tierra Bonilla. recent removal of tooth, 1 of 3, admitted overnight for for nausea and dizziness afterward,. covid 04/2021 History of Any Multi-Drug Resistant Organisms: MRSA Date of last positivie culture/infection: 11/20/2012 MDRO Source:: back Past Surgical History: Orthopedic Surgery Additional Past Surgical History / Comment(s): COLONOSCOPY/EGD, surgery for undescended testicles. RT HAND SX. procedure for prolonged erection. Dr Shah Past Anesthesia/Blood Transfusion Reactions: Motion Sickness Additional Past Anesthesia/Blood Transfusion Reaction / Comment(s): faint and dizzy after hand surgery Past Psychological History: Anxiety, Depression Smoking Status: Never smoker Past Alcohol Use History: None Reported Past Drug Use History: None Reported - Past Family History Brother(s) Family Medical History: Cancer Mother Family Medical History: Coronary Artery Disease (CAD) Additional Family Medical History / Comment(s): kidney failure Father Family Medical History: Coronary Artery Disease (CAD) General Exam - General Exam Comments Initial Comments: General: The patient is awake and alert, in no distress, and does not appear acutely ill. Eye: Pupils are equal, round and reactive to light, extra-ocular movements are intact. No nystagmus. There is normal conjunctiva bilaterally. No signs of icterus. Ears, nose, mouth and throat: There are moist mucous membranes and no oral lesions. Neck: The neck is supple, there is no tenderness or JVD. Cardiovascular: There is a regular rate and rhythm. No murmur, rub or gallop is appreciated. Respiratory: Lungs are clear to auscultation, respirations are non-labored, breath sounds are equal. No wheezes, stridor, rales, or rhonchi. Gastrointestinal: Admits soft nontender. No rebound, guarding CVA tenderness. Musculoskeletal: Normal ROM, no tenderness. Neurological: A&O x 3. CN II-XII intact, There are no obvious motor or sensory deficits. Coordination appears grossly intact. Speech is normal. Skin: Skin is warm and dry and no rashes or lesions are noted. Psychiatric: Cooperative, appropriate mood & affect, normal judgment. Limitations: no limitations Course Vital Signs 04/25/23 05:49 Temperature 97.9 F Pulse Rate 107 H Respiratory 20 Rate Blood Pressure 154/94 O2 Sat by Pulse 97 Oximetry Medical Decision Making - Medical Decision Making History was obtained from patient/Nurse/ Initial assessment and chief complaint: ALLERGIC reaction Chronic conditions affecting care: Depression, hypertension, hyperlipidemia, diabetes Social determinants affecting care: None Differential diagnosis included, but not limited to: At first/ALLERGIC reaction to medication. Gastroenteritis, gastritis, colitis, 43-year-old male significant past medical history for psychiatric disease presented to the emergency room today with a chief complaint of adverse reaction to medication. States that he took one dose of vraylar yesterday. He states taking his medication has had hallucinations with it. He states he believes started having some hallucinations. He states only symptoms are actually improving but he still having some symptoms of nausea and upset stomach. Patient abdomen soft nontender. Vitals been reviewed. The patient suffered nausea medication here in emergency room and she is feeling better. Patient will be given a short prescription of Zofran symptoms pharmacy. Was advised to discontinue vraylar at this time is feeling one dose. Advised to follow with CM. Advised return for any other concerns. States understanding and is agreement with plan. Disposition Clinical Impression: Allergic reaction Disposition: HOME SELF-CARE Condition: Good Instructions (If sedation given, give patient instructions): General Allergic Reaction (ED) Additional Instructions: Please follow up with [facility] as discussed. Pleasemedication as prescribed. Return for any concerns. Prescriptions: Ondansetron Odt [Zofran ODT] 4 mg PO Q8HR PRN #20 tab PRN Reason: Nausea Is patient prescribed a controlled substance at d/c from ED?: No Referrals: Farzana Canales MD [Primary Care Provider] - 1-2 days Time of Disposition: 07:57
[2023-04-25 08:30] VITALS: BP 142/90; PULSE 96; TEMP 98.1
== END 2023-04-25 08:15 | disposition home or self-care (01) ==
LOC: EC 05:43
DX: T78.40XA Allergy, unspecified, initial encounter (principal); E11.9 Type 2 diabetes mellitus without complications; I10 Essential (primary) hypertension; Z88.8 Allergy status to other drugs, medicaments and biological substances; Z86.16 Personal history of COVID-19
CPT/HCPCS: 99283

== ENCOUNTER 2023-05-09 10:00 | Inpatient (IN) | payer MEDICARE, MEDICAID ==
[2023-05-09 11:08] LABS: Amphetamine Screen,Urine Not Detected (NotDetected); Barbiturate Screen,Urine Not Detected (NotDetected); Benzodiazepines Screen,Urine Not Detected (NotDetected); Cocaine Screen,Urine Not Detected (NotDetected); Methadone Screen, Urine Not Detected (NotDetected); Opiate Screen,Urine Not Detected (NotDetected); Oxycodone Screen, Urine Not Detected (NotDetected); Phencyclidine Screen,Urine Not Detected (NotDetected); Tricyclic Antidepressant,Urine Not Detected (NotDetected); Urn Cannabinoid Scrn Not Detected (NotDetected)
--- NOTE | 2023-05-09 15:28 | ED ---
Psych HPI - General Chief Complaint: Psychiatric Symptoms Stated Complaint: mental health Time Seen by Provider: 05/09/23 10:09 Source: patient, RN notes reviewed Mode of arrival: ambulatory Limitations: no limitations - History of Present Illness Initial Comments: 43-year-old male presents emergency department with family for psychiatric evaluation. Patient has long psychiatric history. Patient reportedly has been self harming, threatening others. They brought him here for evaluation. Patient does by himself he has scars, old wound on his arms. Patient denies any drug or alcohol use. - Related Data Home Medications Medication Instructions Recorded Confirmed ARIPiprazole [Abilify] 10 mg PO HS 05/09/23 05/09/23 Bicalutamide 50 mg PO BID 05/09/23 05/09/23 Ezetimibe [Zetia] 10 mg PO DAILY 05/09/23 05/09/23 LORazepam 2 mg PO HS 05/09/23 05/09/23 Promethazine HCl 12.5 mg PO Q6H PRN 05/09/23 05/09/23 methIMAzole [Tapazole] 10 mg PO DAILY 05/09/23 05/09/23 Previous Rx's Medication Instructions Recorded Empagliflozin [Jardiance] 10 mg PO DAILY 30 Days #30 tab 08/15/22 Fenofibrate [Lofibra] 54 mg PO DAILY 30 Days #30 tab 08/15/22 Metoprolol Tartrate [Lopressor] 50 mg PO BID 30 Days #60 tab 08/15/22 Ondansetron Odt [Zofran ODT] 4 mg PO Q8HR PRN tab 08/15/22 amLODIPine [Norvasc] 5 mg PO DAILY 30 Days #30 tab 08/15/22 hydroCHLOROthiazide [Hydrodiuril] 25 mg PO DAILY 30 Days #30 tab 08/15/22 lisinopriL 40 mg PO DAILY 30 Days #30 tab 08/15/22 Allergies Allergy/AdvReac Type Severity Reaction Status Date / Time aripiprazole [From Abilify] AdvReac erection Verified 05/09/23 12:03 that lasted over 24 hrs clonazepam AdvReac tremors Verified 05/09/23 12:03 escitalopram [From Lexapro] AdvReac erection Verified 05/09/23 12:03 that lasted over 24 hrs hydroxyzine AdvReac 'bothers Verified 05/09/23 12:03 eyes" olanzapine AdvReac tremors Verified 05/09/23 12:03 and increased erection time. Review of Systems ROS Statement: Those systems with pertinent positive or pertinent negative responses have been documented in the HPI. ROS Other: All systems not noted in ROS Statement are negative. 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 with Dr Tierra Bonilla. recent removal of tooth, 1 of 3, admitted overnight for for nausea and dizziness afterward,. covid 04/2021 History of Any Multi-Drug Resistant Organisms: MRSA Date of last positivie culture/infection: 11/20/2012 MDRO Source:: back Past Surgical History: Orthopedic Surgery Additional Past Surgical History / Comment(s): COLONOSCOPY/EGD, surgery for undescended testicles. RT HAND SX. procedure for prolonged erection. Dr Shah Past Anesthesia/Blood Transfusion Reactions: Motion Sickness Additional Past Anesthesia/Blood Transfusion Reaction / Comment(s): faint and dizzy after hand surgery Past Psychological History: Anxiety, Bipolar, Depression Smoking Status: Never smoker Past Alcohol Use History: None Reported Past Drug Use History: None Reported - Past Family History Brother(s) Family Medical History: Cancer Mother Family Medical History: Coronary Artery Disease (CAD) Additional Family Medical History / Comment(s): kidney failure Father Family Medical History: Coronary Artery Disease (CAD) General Exam Limitations: no limitations General appearance: alert, in no apparent distress Head exam: Present: atraumatic, normocephalic, normal inspection Eye exam: Present: normal appearance, PERRL, EOMI. Absent: scleral icterus, conjunctival injection, periorbital swelling ENT exam: Present: normal exam, mucous membranes moist Neck exam: Present: normal inspection. Absent: tenderness, meningismus, lymphadenopathy Respiratory exam: Present: normal lung sounds bilaterally. Absent: respiratory distress, wheezes, rales, rhonchi, stridor Cardiovascular Exam: Present: regular rate, normal rhythm, normal heart sounds. Absent: systolic murmur, diastolic murmur, rubs, gallop, clicks Course Vital Signs 05/09/23 10:07 Pulse Rate 96 Respiratory 18 Rate Blood Pressure 143/95 O2 Sat by Pulse 98 Oximetry Medical Decision Making - Medical Decision Making Was pt. sent in by a medical professional or institution (, PA, TECHNICIAN PREVENTATIVE MEDICINE, urgent care, hospital, or jail...) When possible be specific @ -No Did you speak to anyone other than the patient for history (EMS, parent, family, police, friend...)? What history was obtained from this source @ -Family regarding current history and past medical history Did you review nursing and triage notes (agree or disagree)? Why? @ -I reviewed and agree with nursing and triage notes Were old charts reviewed (outside hosp., previous admission, EMS record, old EKG, old radiological studies, urgent care reports/EKG's, jail records)? Report findings @ -No old charts were reviewed Differential Diagnosis (chest pain, altered mental status, abdominal pain women, abdominal pain men, vaginal bleeding, weakness, fever, dyspnea, syncope, headache, dizziness, GI bleed, back pain, seizure, CVA, palpatations, mental health, musculoskeletal)? @ -Differential Mental Health Depression, anxiety, bipolar, psychosis, schizophrenia, borderline personality, situational depression, adjustment disorder, behavioral disorder, brain tumor, malingering, substance abuse, encephalopathy, medication reaction, dementia, hypothyroidism, degenerative neurologic disorder, lupus.... This is not meant to be all-inclusive list EKG interpreted by me (3pts min.). @ -None X-rays interpreted by me (1pt min.). @ -None done CT interpreted by me (1pt min.). @ -None done U/S interpreted by me (1pt. min.). @ -None done What testing was considered but not performed or refused? (CT, X-rays, U/S, labs)? Why? @ -None What meds were considered but not given or refused? Why? @ -None Did you discuss the management of the patient with other professionals (professionals i.e. , JESUS, TECHNICIAN PREVENTATIVE MEDICINE, lab, RT, psych nurse, nephrology social worker, spot checker, teacher, global safety officer, senior case manager)? Give summary @ -EPS patient evaluated and recommends inpatient treatment Was smoking cessation discussed for >3mins.? @ -No Was critical care preformed (if so, how long)? @ -No Were there social determinants of health that impacted care today? How? ( Homelessness, low income, unemployed, alcoholism, drug addiction, transportation, low edu. Level, literacy, decrease access to med. care, intermediate, rehab)? @ -No Was there de-escalation of care discussed even if they declined (Discuss DNR or withdrawal of care, Hospice)? DNR status @ -No What co-morbidities impacted this encounter? (DM, HTN, Smoking, COPD, CAD, Cancer, CVA, ARF, Chemo, Hep., AIDS, mental health diagnosis, sleep apnea, morbid obesity)? @ -None Was patient admitted / discharged? Hospital course, mention meds given and route, prescriptions, significant lab abnormalities, going to OR and other pertinent info. @ -Admitted for psychiatric treatment after evaluation by EPS. Undiagnosed new problem with uncertain prognosis? @ -No Drug Therapy requiring intensive monitoring for toxicity (Heparin, Nitro, Insulin, Cardizem)? @ -No Were any procedures done? @ -No Diagnosis/symptom? @ -Suicide ideation Acute, or Chronic, or Acute on Chronic? @ -Acute Uncomplicated (without systemic symptoms) or Complicated (systemic symptoms)? @ -,complicated Side effects of treatment? @ -No Exacerbation, Progression, or Severe Exacerbation? @ -No Poses a threat to life or bodily function? How? (Chest pain, [place], [place], pneumonia, PE, COPD, DKA, ARF, appy, cholecystitis, CVA, Diverticulitis, Homicidal, Suicidal, threat to staff... and all critical care pts) @ -yes patient is suicidal - Lab Data Lab Results 05/09/23 05/09/23 Range/Units 10:14 10:20 Urine Opiates Screen Not Detected (NotDetected) Ur Oxycodone Screen Not Detected (NotDetected) Urine Methadone Screen Not Detected (NotDetected) Ur Barbiturates Screen Not Detected (NotDetected) U Tricyclic Antidepress Not Detected (NotDetected) Ur Phencyclidine Scrn Not Detected (NotDetected) Ur Amphetamines Screen Not Detected (NotDetected) U Methamphetamines Scrn Not Detected (NotDetected) U Benzodiazepines Scrn Not Detected (NotDetected) Urine Cocaine Screen Not Detected (NotDetected) U Marijuana (THC) Screen Not Detected (NotDetected) SARS-CoV-2 (PCR) Not Detected (Not Detectd) Disposition Clinical Impression: Suicidal ideation, Psychosis Disposition: TRANSFER TO PSYCH HOSP/UNIT Referrals: Janie Babcock DO [Primary Care Provider] - 1-2 days Time of Disposition: 15:28
[2023-05-09] MEDS ORDERED: PROMETHAZINE 25 MG TAB PO PRN (15:53)
[2023-05-09] MEDS ORDERED: HALOPERIDOL LACTATE 5 MG/ML 1 ML VIAL IM PRN (15:57)
[2023-05-09] MEDS ORDERED: ACETAMINOPHEN TAB 325 MG TAB PO PRN (15:57)
[2023-05-09] MEDS ORDERED: MAGNESIUM HYDROXIDE 2,400 MG/30 ML CUP PO PRN (15:57)
[2023-05-09] MEDS ORDERED: MAG HYDROX/AL HYDROX/SIMETH 30 ML CUP PO PRN (15:57)
[2023-05-09] MEDS ORDERED: IBUPROFEN 600 MG TAB PO PRN (15:57)
[2023-05-09] MEDS ORDERED: haloperidoL 5 MG TAB PO PRN (15:57)
[2023-05-09] MEDS: LORazepam 1 MG TAB PO SCH (20:50)
[2023-05-09] MEDS: BICALUTAMIDE 50 MG TAB PO SCH (20:51)
[2023-05-09] MEDS: METOPROLOL TARTRATE 50 MG TAB PO SCH ×2 (20:51→21:03)
--- NOTE | 2023-05-10 02:57 | P.CONS ---
History of Present Illness - Reason for Consult Consult date: 05/09/23 - History of Present Illness The patient is a 43-year-old male with a PMH of bipolar disorder, autism, GERD, and hypertension who was brought to the emergency room for a psychiatric evaluation after he was noted to be self harming. The patient was admitted to mental health unit where he was seen and evaluated accompanied by mental health unit RN. The patient had no active complaints at the time of interview. He denied experiencing chest discomfort, shortness of breath, fever, chills, cough, nausea, vomiting, abdominal pain, diarrhea. He denied tobacco, illicit substance, or alcohol use. Review of systems: Pertinent positives and negatives as discussed in HPI, a complete review of systems was performed and all other systems are negative. Physical examination: General: non toxic, no distress, appears at stated age, morbidly obese Derm: no unusual rashes/lesions, no unusual ecchymoses, warm, dry Head: atraumatic, normocephalic, symmetric Eyes: EOMI, no lid lag, anicteric sclera ENT: Nose and ears atraumatic, no thrush, no pharyngeal erythema Neck: trachea midline, supple Mouth: no lip lesion, mucus membranes moist Cardiovascular: S1S2 reg, no murmur, no edema Lungs: CTA bilateral, no rhonchi, no rales , no accessory muscle use Abdominal: soft, nontender to palpation, no guarding Ext: no gross muscle atrophy, no contractures, Neuro: No gross focal neuro deficits noted Psych: Alert, oriented, appropriate affect Assessment: Subclinical hyperthyroidism Chronic conditions: Hypertension, GERD, autism Bipolar disorder Imaging: None performed Data Review: Laboratory evaluation was reviewed with TSH 0.015, hemoglobin A1c 6.5, glucose 127 with urine toxicology negative. Plan: Continue the patient's home medications including Norvasc, Casodex, Farxiga, Zetia, lisinopril, methimazole, and lopressor Defer management of bipolar disorder to primary psychiatry service Thank you for allowing us to participate in the care of this patient. We will follow peripherally. Do not hesitate to contact us with questions. Someone can be reached from the [facility] hospitalist group at all hours of the day at [phone]. 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 with Dr Tierra Bonilla. recent removal of tooth, 1 of 3, admitted overnight for for nausea and dizziness afterward,. covid 04/2021 History of Any Multi-Drug Resistant Organisms: MRSA Year Discovered:: 11/20/2012 MDRO Source:: back Past Surgical History: Orthopedic Surgery Additional Past Surgical History / Comment(s): COLONOSCOPY/EGD, surgery for undescended testicles. RT HAND SX. procedure for prolonged erection. Dr Shah Past Anesthesia/Blood Transfusion Reactions: Motion Sickness Additional Past Anesthesia/Blood Transfusion Reaction / Comm: faint and dizzy after hand surgery Past Psychological History: Anxiety, Bipolar, Depression Additional Psychological History / Comment(s): major depression, autism? Smoking Status: Never smoker Past Alcohol Use History: None Reported Past Drug Use History: None Reported - Past Family History Brother(s) Family Medical History: Cancer Mother Family Medical History: Coronary Artery Disease (CAD) Additional Family Medical History / Comment(s): kidney failure Father Family Medical History: Coronary Artery Disease (CAD) Medications and Allergies Home Medications Medication Instructions Recorded Confirmed Type Empagliflozin [Jardiance] 10 mg PO DAILY 30 Days #30 tab 08/15/22 05/09/23 Rx Fenofibrate [Lofibra] 54 mg PO DAILY 30 Days #30 tab 08/15/22 05/09/23 Rx Metoprolol Tartrate [Lopressor] 50 mg PO BID 30 Days #60 tab 08/15/22 05/09/23 Rx Ondansetron Odt [Zofran ODT] 4 mg PO Q8HR PRN tab 08/15/22 05/09/23 Rx amLODIPine [Norvasc] 5 mg PO DAILY 30 Days #30 tab 08/15/22 05/09/23 Rx hydroCHLOROthiazide [Hydrodiuril] 25 mg PO DAILY 30 Days #30 tab 08/15/22 05/09/23 Rx lisinopriL 40 mg PO DAILY 30 Days #30 tab 08/15/22 05/09/23 Rx ARIPiprazole [Abilify] 10 mg PO HS 05/09/23 05/09/23 History Bicalutamide 50 mg PO BID 05/09/23 05/09/23 History Ezetimibe [Zetia] 10 mg PO DAILY 05/09/23 05/09/23 History LORazepam 2 mg PO HS 05/09/23 05/09/23 History Promethazine HCl 12.5 mg PO Q6H PRN 05/09/23 05/09/23 History methIMAzole [Tapazole] 10 mg PO DAILY 05/09/23 05/09/23 History Allergies Allergy/AdvReac Type Severity Reaction Status Date / Time aripiprazole [From Abilify] AdvReac erection Verified 05/09/23 12:03 that lasted over 24 hrs clonazepam AdvReac tremors Verified 05/09/23 12:03 escitalopram [From Lexapro] AdvReac erection Verified 05/09/23 12:03 that lasted over 24 hrs hydroxyzine AdvReac 'bothers Verified 05/09/23 12:03 eyes" olanzapine AdvReac tremors Verified 05/09/23 12:03 and increased erection time. Physical Exam Vitals: Vital Signs Temp Pulse Pulse Resp BP BP Pulse Ox 05/09/23 21:04 107 H 18 117/80 05/09/23 17:36 98.2 F 99 16 143/95 05/09/23 10:07 96 18 143/95 98 Intake and Output 05/09/23 05/09/23 05/10/23 14:59 22:59 06:59 Other: Weight 106.141 kg 104.411 kg
[2023-05-10 07:22] LABS: Basophils # (A) 0.1 k/uL (0-0.2); Basophils % (A) 1 %; Eosinophils # (A) 1.2 k/uL (0-0.7); Eosinophils % (A) 17 %; HGB 14.2 gm/dL (13.0-17.5); Hypochromasia Slight; Lymphocytes # (A) 1.8 k/uL (1.0-4.8); Lymphocytes % (A) 26 %; MCH 27.4 pg (25.0-35.0); MCHC 31.6 g/dL (31.0-37.0); MCV 86.8 fL (80.0-100.0); Mean Platelet Volume 7.9; Monocytes # (A) 0.3 k/uL (0-1.0); Monocytes % (A) 4 %; Neutrophils # (A) 3.7 k/uL (1.3-7.7); Neutrophils % (A) 51 %; Platelet Count 297 k/uL (150-450); RBC 5.18 m/uL (4.30-5.90); RDW 13.4 % (11.5-15.5); WBC 7.2 k/uL (3.8-10.6)
[2023-05-10] MEDS: lisinopriL 20 MG TAB PO SCH ×3 (08:30→08:59)
[2023-05-10] MEDS: NICOTINE 21MG/24HR PATCH TRANSDERM SCH ×3 (08:30→08:59)
[2023-05-10] MEDS: EZETIMIBE 10 MG TAB PO SCH ×2 (08:32→08:41)
[2023-05-10] MEDS: FENOFIBRATE 54 MG TAB PO SCH ×2 (08:32→08:41)
[2023-05-10] MEDS: BICALUTAMIDE 50 MG TAB PO SCH ×3 (08:32→19:51)
[2023-05-10] MEDS: DAPAGLIFLOZIN PROPANEDIOL 5 MG TABLET PO SCH ×2 (08:32→08:41)
[2023-05-10] MEDS: hydroCHLOROthiazide 25 MG TAB PO SCH ×3 (08:32→08:59)
[2023-05-10] MEDS: amLODIPine 5 MG TAB PO SCH ×2 (08:33→08:41)
[2023-05-10] MEDS: methIMAzole 5 MG TAB PO SCH ×2 (08:33→08:59)
[2023-05-10] MEDS: METOPROLOL TARTRATE 50 MG TAB PO SCH ×2 (08:42→19:52)
[2023-05-10] MEDS: ONDANSETRON ODT 4 MG TAB PO PRN (10:33)
[2023-05-10 11:08] LABS: Glucose,Whole Blood 106 mg/dL (70-110)
[2023-05-10 11:32] LABS: Chol/HDL Ratio 5.68 Ratio; LDL Cholesterol,Calculated 90.5 mg/dL (0.0-131.0)
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
[2023-05-10] MEDS: LORazepam 1 MG TAB PO SCH (19:51)
[2023-05-11] MEDS: FENOFIBRATE 54 MG TAB PO SCH (08:05)
[2023-05-11] MEDS: amLODIPine 5 MG TAB PO SCH (08:05)
[2023-05-11] MEDS: METOPROLOL TARTRATE 50 MG TAB PO SCH ×2 (08:06→23:58)
[2023-05-11] MEDS: EZETIMIBE 10 MG TAB PO SCH (08:06)
[2023-05-11] MEDS: DAPAGLIFLOZIN PROPANEDIOL 5 MG TABLET PO SCH (08:06)
[2023-05-11] MEDS: BICALUTAMIDE 50 MG TAB PO SCH ×2 (08:06→23:58)
[2023-05-11] MEDS: hydroCHLOROthiazide 25 MG TAB PO SCH (08:06)
[2023-05-11] MEDS: lisinopriL 20 MG TAB PO SCH (08:06)
[2023-05-11] MEDS: methIMAzole 5 MG TAB PO SCH (08:07)
[2023-05-11] MEDS: NICOTINE 21MG/24HR PATCH TRANSDERM SCH (08:09)
[2023-05-11] MEDS: ZIPRASIDONE 20 MG CAP PO SCH (14:58)
--- NOTE | 2023-05-11 16:40 | P.PN ---
Progress Note - Text Progress Note Date: 05/11/23 Interval history: Patient was seen today wandering the hallways and was agreeable to speak to wr iter in the office today. he states that he is still feeling depressed at times and also anxious. he states that he is also having delusions and paranoia about people coming into his room and taking his belongings. he states he is still hearing voices at this time. he is denying any VH. denies any Si or HI. he claims that he is going to some groups. he expresses that he is having difficulties still taking pills orally and claims that he has had very difficult times with it and taking other antipsychotics. He states that he is sleeping fairly at this time. appetite is fair. he was agreeable to take geodon at this time. Mental status examination: Patient was seen today, has blondish hair, cooperative, pleasant. Patient was somehwhat bizarre, endorsing paranoia. gait normal, no tremors goal oriented, paranoia. claims his mood is "depressed" and has a constricted affect alert and oriented x 3, fair attention span. judgment and insight poor Diagnostic impression: schizoaffective disorder bipolar type plan: the patient continues to meet inpatient criteria for psychiatric treatment, patient has signed voluntary form. therapy will be focused on providing supportive care in improving his coping abilities to the multi-model treatment patient will also participate in all the what activities individual milieu group Medications: start geodon 20 mg bid for mood stabilization/psychosis, ativan 1 mg qhs for anxiety/sleep. will consider tapering down. maintain supportive care and safety precautions social work for discharge planning. likely discharge next week if patient continues to improve.
[2023-05-11] MEDS ORDERED: diphenhydrAMINE 50 MG/ML 1 ML VIAL IM PRN (22:27)
[2023-05-11 23:55] LABS: ALT 23 U/L (10-49); AST 16 U/L (14-35); Albumin 3.9 g/dL (3.8-4.9); Alkaline Phosphatase 94 U/L (41-126); Blood Urea Nitrogen 11.8 mg/dL (9.0-27.0); Calcium 8.8 mg/dL (8.7-10.3); Carbon Dioxide 22.2 mmol/L (21.6-31.8); Chloride 105 mmol/L (96-109); Glucose 108 mg/dL (70-110); Potassium 4.2 mmol/L (3.5-5.5); Sodium 141 mmol/L (135-145); Total Bilirubin 0.4 mg/dL (0.3-1.2); Total Protein 6.1 g/dL (6.2-8.2)
[2023-05-11] MEDS: LORazepam 1 MG TAB PO SCH (23:57)
[2023-05-12] MEDS: ZIPRASIDONE 20 MG CAP PO SCH ×2 (08:39→17:22)
[2023-05-12] MEDS: FENOFIBRATE 54 MG TAB PO SCH (08:41)
[2023-05-12] MEDS: BICALUTAMIDE 50 MG TAB PO SCH ×2 (08:41→21:38)
[2023-05-12] MEDS: amLODIPine 5 MG TAB PO SCH (08:41)
[2023-05-12] MEDS: EZETIMIBE 10 MG TAB PO SCH (08:41)
[2023-05-12] MEDS: DAPAGLIFLOZIN PROPANEDIOL 5 MG TABLET PO SCH (08:41)
[2023-05-12] MEDS: methIMAzole 5 MG TAB PO SCH (08:42)
[2023-05-12] MEDS: METOPROLOL TARTRATE 50 MG TAB PO SCH ×2 (08:42→21:38)
[2023-05-12] MEDS: hydroCHLOROthiazide 25 MG TAB PO SCH (08:42)
[2023-05-12] MEDS: lisinopriL 20 MG TAB PO SCH (08:42)
[2023-05-12] MEDS: risperiDONE ODT 1 MG TAB PO SCH (21:23)
[2023-05-12] MEDS: ONDANSETRON ODT 4 MG TAB PO PRN (21:33)
[2023-05-12] MEDS: LORazepam 1 MG TAB PO SCH (21:38)
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
[2023-05-13] MEDS: FENOFIBRATE 54 MG TAB PO SCH (08:47)
[2023-05-13] MEDS: BICALUTAMIDE 50 MG TAB PO SCH (08:47)
[2023-05-13] MEDS: amLODIPine 5 MG TAB PO SCH (08:47)
[2023-05-13] MEDS: EZETIMIBE 10 MG TAB PO SCH (08:47)
[2023-05-13] MEDS: DAPAGLIFLOZIN PROPANEDIOL 5 MG TABLET PO SCH (08:47)
[2023-05-13] MEDS: hydroCHLOROthiazide 25 MG TAB PO SCH (08:48)
[2023-05-13] MEDS: methIMAzole 5 MG TAB PO SCH (08:48)
[2023-05-13] MEDS: lisinopriL 20 MG TAB PO SCH (08:48)
[2023-05-13] MEDS: METOPROLOL TARTRATE 50 MG TAB PO SCH (08:49)
[2023-05-13] MEDS: risperiDONE ODT 1 MG TAB PO SCH ×2 (08:49→20:45)
[2023-05-13] MEDS: ONDANSETRON ODT 4 MG TAB PO PRN ×2 (08:49→17:33)
[2023-05-13 08:50] LABS: Glucose,Whole Blood 130 mg/dL (70-110)
--- NOTE | 2023-05-13 17:56 | P.PN ---
Progress Note - Text Progress Note Date: 05/13/23 Interval history: Patient was seen sitting in the TV lounge. He was directable and agreeable to speak with teletypewriter operator. He reports benefit from the Risperdal M-tab 1 mg BID, and reports he has been able to take the M-tabs and Zofran without vomiting, although he still exhibits somatic delusions and points to his throat as if he believes there is something there. No vomiting reported so far today. He continues to exhibit paranoid delusions, and states there seems to be somebody going in his room and moving his things and occasionally feels someone in his room, which he describes as "hallucinating". He denies hearing voices but appears to be internally preoccupied, appears suspicious and guarded. He is still noncompliant with his oral home medications. On reviewing these medications today, there are 4 blood pressure medications ordered for him which he is not taking, and his blood has been within normal range this admission. I discussed these medications with his nurse and she will do a medication review with pharmacy to determine his accurate home medication list. Mental status exam: General Appearance: Patient appears to be stated age, disheveled, unshaven, showered and dressed in hospital gown. Behavior: No agitated behavior. Patient is directable. Suspicious and guarded. Speech: Patient's speech is fluent and non-pressured. Mood/Affect: Mood is anxious, affect is congruent and constricted. Suicidality/Homicidality: Patient denies having any suicidal or homicidal ideation intent or plan. Perceptions: Patient denies any auditory or visual hallucinations, however he appears internally preoccupied . Though content/process: There is evidence of paranoid and somatic delusional thought content, and thought process is concrete. Memory and concentration: AOX3, poor Assessment/Plan: Continue with current diagnosis. Patient continues to meet criteria for inpatient psychiatric admission for symptom stabilization and safety. Increase Risperdal M-tab to 2 mg ODT BID for psychosis starting tonight. He has Zofran PRN ordered for nausea/vomiting in case he needs it. Discontinue Ativan 1mg QHS since he is not taking it. Nurse will review home medications with pharmacy since the current home med list does not appear to be accurate: he is ordered 4 antihypertensive meds but has normal blood pressure despite refusing all these meds, and will discontinue outdated meds. Monitor for medication compliance and for any psychotropic medication side effects. Will continue to monitor ongoing response to treatment. Encouraged participation in milieu.
[2023-05-14] MEDS: DAPAGLIFLOZIN PROPANEDIOL 5 MG TABLET PO SCH (08:45)
[2023-05-14] MEDS: risperiDONE ODT 1 MG TAB PO SCH (08:46)
--- NOTE | 2023-05-14 10:16 | P.PN ---
Progress Note - Text Progress Note Date: 05/14/23 Interval history: Patient was seen today wandering the hallways and was agreeable to speak to wr skyler in the office today. Patient claims that he feels a bit tired this morning. We spoke about adjusting his medications. Claims that the Risperdal formulation is easier for him as it is dissolving in his mouth. He states that he still has feelings that "somebody might be my room" and has been rearranging his belongings. He states that he is feeling less paranoid, at this time he is denying any hallucinations. he states that he is still feeling anxious at times. She has been socializing more on the unit and attending group. He states that he is sleeping fairly at this time. appetite is fair. Claims that he has poor energy during the day. Mental status examination: Patient was seen today, has blondish hair, cooperative, pleasant. Patient was somehwhat bizarre, endorsing paranoia, preventing mildly gait normal, no tremors goal oriented, paranoia, improving. claims his mood is "better" and has a constricted affect, improving alert and oriented x 3, fair attention span. judgment and insight poor, improving mildly Diagnostic impression: schizoaffective disorder bipolar type plan: the patient continues to meet inpatient criteria for psychiatric treatment, patient has signed voluntary form. patient will also participate in all the what activities individual milieu group Medications: risperdal M tab changed to 1 mg daily + 3 mg qhs for mood stabilization/psychosis maintain supportive care and safety precautions social work for discharge planning. likely discharge in 2-3 days if patient improves psychiatrically.
[2023-05-14] MEDS ORDERED: risperiDONE ODT 1 MG TAB PO SCH (21:00)
[2023-05-15 01:46] VITALS: RESP 16
[2023-05-15] MEDS: DAPAGLIFLOZIN PROPANEDIOL 5 MG TABLET PO SCH (08:37)
[2023-05-15] MEDS: risperiDONE ODT 1 MG TAB PO SCH ×2 (08:38→08:42)
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
[2023-05-15] MEDS: risperiDONE ODT 2 MG TAB PO SCH (20:47)
[2023-05-16] MEDS: risperiDONE ODT 1 MG TAB PO SCH (08:43)
[2023-05-16] MEDS: DAPAGLIFLOZIN PROPANEDIOL 5 MG TABLET PO SCH (08:43)
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
[2023-05-16] MEDS: ONDANSETRON ODT 4 MG TAB PO PRN (10:17)
[2023-05-16] MEDS: risperiDONE ODT 2 MG TAB PO SCH (20:11)
[2023-05-17 07:29] VITALS: BP 127/76; PULSE 116; TEMP 97.5
[2023-05-17] MEDS: risperiDONE ODT 1 MG TAB PO SCH (08:27)
[2023-05-17] MEDS: DAPAGLIFLOZIN PROPANEDIOL 5 MG TABLET PO SCH (08:27)
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
[2023-05-17] MEDS: ONDANSETRON ODT 4 MG TAB PO PRN (12:36)
== END 2023-05-17 17:10 | disposition home or self-care (01) | DRG 885 ==
LOC: EC 10:00 → 3MHU 15:51
PROVIDERS: ADMIT Psychiatry & Neurology Psychiatry; ATTEND Psychiatry & Neurology Psychiatry
DX: F25.0 Schizoaffective disorder, bipolar type (principal); R45.851 Suicidal ideations; E11.9 Type 2 diabetes mellitus without complications; I10 Essential (primary) hypertension; E05.90 Thyrotoxicosis, unspecified without thyrotoxic crisis or storm; Z11.52 Encounter for screening for COVID-19; F84.0 Autistic disorder; Z91.128 Patient's intentional underdosing of medication regimen for other reason; K21.9 Gastro-esophageal reflux disease without esophagitis; L30.9 Dermatitis, unspecified; L40.9 Psoriasis, unspecified; M19.90 Unspecified osteoarthritis, unspecified site; R13.10 Dysphagia, unspecified; K64.9 Unspecified hemorrhoids; T50.906A Underdosing of unspecified drugs, medicaments and biological substances, initial encounter; E66.01 Morbid (severe) obesity due to excess calories; Z68.33 Body mass index [BMI] 33.0-33.9, adult; Z79.84 Long term (current) use of oral hypoglycemic drugs; Z79.899 Other long term (current) drug therapy; Z86.16 Personal history of COVID-19; E78.5 Hyperlipidemia, unspecified; Z71.41 Alcohol abuse counseling and surveillance of alcoholic; Z71.51 Drug abuse counseling and surveillance of drug abuser; Z86.14 Personal history of Methicillin resistant Staphylococcus aureus infection
CPT/HCPCS: 80053; 80061; 80306; 82075; 83036; 84443; 85025; 87635; 93005; 99285

== ENCOUNTER → 2024-11-11 | Outpatient (CLI) | payer MEDICARE | END | disposition home or self-care (01) | LOC: RADMRIMAIN 08:48 | PROVIDERS: ATTEND Family Medicine | DX: Z53.9 Procedure and treatment not carried out, unspecified reason (principal) ==